=== PATIENT | male | born 1965 | race Hispanic/Latino ===

== ENCOUNTER 2016-11-10 18:35 | Emergency (ER) | payer MEDICAID ==
[2016-11-10 18:38] VITALS: BMI 28.3
[2016-11-10 18:56] VITALS: TEMP 98
--- NOTE | 2016-11-10 19:16 | ED PDOC ---
Arrival/HPI - General Historian: Patient - History of Present Illness Time/Duration: Prior to Arrival Symptom Onset: Sudden Symptom Course: Unchanged <Rafael Gutierrez - Last Filed: 11/10/16 22:46> <Casper Barrientos - Last Filed: 11/11/16 05:59> - General Chief Complaint: Substance Abuse Time Seen by Provider: 11/10/16 18:38 - History of Present Illness Narrative History of Present Illness (Text): 11/10/16 19:18 A 51 year old male, with a history of substance abuse, brought in by EMS for intoxication after police found patient trying to break into a bank. Patient came to emergency department previously for substance abuse. Patient denies any other complaints at this time. Patient came to emergency department previously for substance abuse. (Rafael Gutierrez) Associated Symptoms (Text): none (Rafael Gutierrez) Past Medical History - Provider Review Nursing Documentation Reviewed: Yes - Infectious Disease Hx of Infectious Diseases: None, C.diff - Tetanus Immunization Tetanus Immunization: Unknown - Past Medical History Past Medical History: No Previous - Cardiac Hx Cardiac Disorders: No - Pulmonary Hx Respiratory Disorders: No - Neurological Hx Neurological Disorder: No - HEENT Hx HEENT Disorder: No - Renal Hx Renal Disorder: No - Endocrine/Metabolic Hx Endocrine Disorders: No - Hematological/Oncological Hx Blood Disorders: No - Integumentary Hx Dermatological Disorder: No - Musculoskeletal/Rheumatological Hx Musculoskeletal Disorders: No Hx Falls: No - Gastrointestinal Hx Gastrointestinal Disorders: No - Genitourinary/Gynecological Hx Genitourinary Disorders: No - Psychiatric Hx Anxiety: Yes Hx Substance Use: Yes (Heroin/Cocaine) Other/Comment: Substance Abuse - Past Surgical History Past Surgical History: No Previous - Anesthesia Hx Anesthesia: No Hx Anesthesia Reactions: No Hx Malignant Hyperthermia: No - Suicidal Assessment Feels Threatened In Home Enviroment: No <Rafael Gutierrez - Last Filed: 11/10/16 22:46> Family/Social History - Physician Review Nursing Documentation Reviewed: Yes Family/Social History: No Known Family HX Smoking Status: Unknown If Ever Smoked Hx Alcohol Use: No Hx Substance Use: Yes (Heroin/Cocaine) Hx Substance Use Treatment: No <Rafael Gutierrez - Last Filed: 11/10/16 22:46> Allergies/Home Meds <Rafael Gutierrez - Last Filed: 11/10/16 22:46> <Casper Barrientos P - Last Filed: 11/11/16 05:59> Allergies/Adverse Reactions: Allergies No Known Allergies Allergy (Verified 11/18/15 21:28) Home Medications: Home Meds Medication Instructions Recorded Confirmed Unobtainable 11/11/16 11/11/16 Review of Systems - Physician Review All systems were reviewed & negative as marked: Yes - Review of Systems Constitutional: Other (substance abuse) Respiratory: absent: SOB Cardiovascular: absent: Chest Pain <Rafael Gutierrez - Last Filed: 11/10/16 22:46> Physical Exam Vital Signs Reviewed: Yes Temperature: Afebrile Blood Pressure: Normal Pulse: Regular Respiratory Rate: Normal Appearance: Positive for: Well-Appearing, Non-Toxic, Comfortable, Other ( somnolent) Pain Distress: None Mental Status: Positive for: Alert and Oriented X 3 - Systems Exam Head: Present: Atraumatic, Normocephalic Pupils: Present: PERRL (2 mm bilateral) Extroacular Muscles: Present: EOMI Conjunctiva: Present: Normal Mouth: Present: Moist Mucous Membranes Neck: Present: Normal Range of Motion Respiratory/Chest: Present: Clear to Auscultation, Good Air Exchange. No: Respiratory Distress, Accessory Muscle Use Cardiovascular: Present: Regular Rate and Rhythm, Normal S1, S2. No: Murmurs Abdomen: Present: Normal Bowel Sounds. No: Tenderness, Distention, Peritoneal Signs Back: Present: Normal Inspection Upper Extremity: Present: Normal Inspection. No: Cyanosis, Edema Lower Extremity: Present: Normal Inspection. No: Edema Neurological: Present: GCS=15, CN II-XII Intact, Speech Normal Skin: Present: Warm, Dry, Normal Color. No: Rashes Psychiatric: Present: Alert, Oriented x 3, Normal Insight, Normal Concentration <Rafael Gutierrez - Last Filed: 11/10/16 22:46> Medical Decision Making - Lab Interpretations I have reviewed the lab results: Yes - EKG Interpretation Interpreted by ED Physician: Yes Type: 12 lead EKG <Rafael Gutierrez - Last Filed: 11/10/16 22:46> <Casper Barrientos P - Last Filed: 11/11/16 05:59> ED Course and Treatment: 11/10/16 19:13 Impression: A 51 year old male with substance abuse, intoxicated. Plan: -- EKG -- chest xray -- Urinalysis -- labs -- Reassess and disposition Prior Visits: Notes and results from previous visits were reviewed. Patient last reported to the emergency department on 11/18/15 for evaluation of exertional chest pain and BOYLE. Patient admitted to telemetry observation for chest pain. Progress Notes: EKG: Ordered, reviewed, and independently interpreted the EKG. Rate : 88 BPM Rhythm : NSR Interpretation : No ST/T wave changes 11/10/16 22:47 pt increasingly arousable. . cxr shows ?infiltrate vs atelecatsis. ct chest/ head ct neg. signed out to night team pending reassessment. (Rafael Gutierrez) 11/11/16 06:00 pt now a&ox3 and ambulatory w steady gait. dc home via [employer]. (Casper Barrientos) - Lab Interpretations Lab Results: 11/10/16 19:25 11/10/16 19:25 Lab Results 11/11/16 01:10: Urine Opiates Screen Positive H, Urine Methadone Screen Negative , Ur Barbiturates Screen Negative, Ur Phencyclidine Scrn Positive H, Ur Amphetamines Screen Negative, U Benzodiazepines Scrn Positive H, U Oth Cocaine Metabols Negative, U Cannabinoids Screen Negative 11/11/16 01:10: Urine Color Yellow, Urine Appearance Clear, Urine pH 6.0, Ur Specific [place] >= 1.030, Urine Protein Negative, Urine Glucose (UA) Negative, Urine Ketones Negative, Urine Blood Trace-intact H, Urine Nitrate Negative, Urine Bilirubin Negative, Urine Urobilinogen 0.2, Ur Leukocyte Esterase Negative , Urine RBC 0 - 2, Urine WBC 0 - 2, Ur Epithelial Cells 0 - 2 11/10/16 19:25: Alcohol, Quantitative < 10 11/10/16 19:25: Salicylates < 1 L, Acetaminophen < 10.0 L 11/10/16 19:25: Sodium 138, Potassium 3.8, Chloride 103, Carbon Dioxide 30, Anion Gap 9 L, BUN 13, Creatinine 1.1, Est GFR ( Amer) > 60, Est GFR (Non -Af Amer) > 60, Random Glucose 83, Calcium 9.1, Total Bilirubin 0.7, AST 100 H, ALT 48, Alkaline Phosphatase 89, Total Protein 7.1, Albumin 4.1, Globulin 3.0, Albumin/Globulin Ratio 1.4 11/10/16 19:25: WBC 10.6 D, RBC 4.57, Hgb 14.6, Hct 42.7, MCV 93.4, MCH 31.9, MCHC 34.2, RDW 13.7, Plt Count 279, MPV 9.3, Gran % 68.2 H, Lymph % (Auto) 24.7 , [place] % (Auto) 6.0, Eos % (Auto) 0.8 L, Baso % (Auto) 0.3, Gran # 7.22 H, Lymph # 2.6, [place] # 0.6, Eos # 0.1, Baso # 0.03 - RAD Interpretation Radiology Orders: 11/10/16 18:46 CHEST PORTABLE [RAD] Stat 11/10/16 19:44 CHEST W/O CONTRAST [CT] Stat HEAD W/O CONTRAST [CT] Stat - Scribe Statement The provider has reviewed the documentation as recorded by the Scribe <Rafael Gutierrez - Last Filed: 11/10/16 22:46> <Casper Barrientos - Last Filed: 11/11/16 05:59> - Scribe Statement Avery Horne Provider Scribe Attestation: All medical record entries made by the Scribe were at my direction and personally dictated by me. I have reviewed the chart and agree that the record accurately reflects my personal performance of the history, physical exam, medical decision making, and the department course for this patient. I have also personally directed, reviewed, and agree with the discharge instructions and disposition. (Rafael Gutierrez) Disposition/Present on Arrival - Present on Arrival History of DVT/PE: No History of Uncontrolled Diabetes: No Urinary Catheter: No History of Decub. Ulcer: No History Surgical Site Infection Following: None <Rafael Gutierrez - Last Filed: 11/10/16 22:46> - Present on Arrival Any Indicators Present on Arrival: No - Disposition Have Diagnosis and Disposition been Completed?: Yes Disposition Time: 05:36 <Casper Barrientos - Last Filed: 11/11/16 05:59> - Disposition Diagnosis: Benzodiazepine abuse, Opioid abuse, PCP abuse Disposition: HOME/ ROUTINE Condition: IMPROVED Referrals: Álvaro Mon MD [Primary Care Provider] - Follow up with primary
[2016-11-10 19:42] LABS: ADD MANUAL DIFF? NO
[2016-11-10 19:49] LABS: BASO # 0.03 K/mm3 (0.0-2.0); BASO % 0.3 % (0.0-3.0); EOS # 0.1 (0.0-0.7); EOS % 0.8 % (1.5-5.0); GRAN # 7.22 (1.4-6.5); GRAN % 68.2 % (50.0-68.0); HEMATOCRIT 42.7 % (42.0-52.0); LYMPH # 2.6 (1.2-3.4); LYMPH % 24.7 % (22.0-35.0); MEAN CELL VOLUME 93.4 fL (80.0-105.0); MEAN CORPUSCULAR HEMOGLOBIN 31.9 pg (25.0-35.0); MEAN CORPUSCULAR HGB CONC 34.2 g/dl (31.0-37.0); MEAN PLATELET VOLUME 9.3 fl (7.0-11.0); MONO # 0.6 (0.1-0.6); PLATELET COUNT 279 10^3/uL (120.0-450.0); RED CELL DISTRIBUTION WIDTH 13.7 % (11.5-14.5); WHITE BLOOD COUNT 10.6 10^3/ul (4.5-11.0)
[2016-11-10 20:00] LABS: ALB/GLOB RATIO 1.4 (1.1-1.8); ALKALINE PHOSPHATASE 89 U/L (38-133); ALT/SGPT 48 U/L (7-56); AST/SGOT 100 U/L (15-59); BILIRUBIN,TOTAL 0.7 mg/dL (0.2-1.3); BLOOD UREA NITROGEN 13 mg/dL (7-21); CALCIUM 9.1 mg/dL (8.4-10.5); CARBON DIOXIDE 30 mmol/L (21-33); CHLORIDE 103 mmol/L (98-107); GFR AFRICAN-AMERICAN > 60; GLUCOSE,RANDOM 83 mg/dL (70-110); POTASSIUM 3.8 mmol/L (3.6-5.0); SODIUM 138 mmol/L (132-148); TOTAL PROTEIN 7.1 g/dL (5.8-8.3)
--- NOTE | 2016-11-10 22:11 | CT ---
EXAM: CT Head Without Intravenous Contrast CLINICAL HISTORY: 51 years old, male; Signs and symptoms; Altered mental status/memory loss; Additional info: AMS TECHNIQUE: Axial computed tomography images of the head/brain without intravenous contrast. This CT exam was performed using one or more of the following dose reduction techniques: automated exposure control, adjustment of the mA and/or kV according to patient size, and/or use of iterative reconstruction technique. COMPARISON: No relevant prior studies available. FINDINGS: Brain: No hemorrhage. No edema. Mild periventricular white matter hypoattenuation, most likely representing mild chronic ischemic small vessel changes. Ventricles: No hydrocephalus. Bones: Skull is intact. Sinuses: No acute sinusitis. Mastoid air cells: No mastoid effusion. IMPRESSION: No CT evidence of acute intracranial abnormality. Mild periventricular white matter hypoattenuation, most likely representing mild chronic ischemic small vessel changes. Correlate clinically. Followup as warranted.
--- NOTE | 2016-11-10 22:18 | CT ---
EXAM: CT Chest Without Intravenous Contrast CLINICAL HISTORY: 51 years old, male; Signs and symptoms; Other: AMS; Additional info: AMS R/O pna TECHNIQUE: Axial computed tomography images of the chest without intravenous contrast. This CT exam was performed using one or more of the following dose reduction techniques: automated exposure control, adjustment of the mA and/or kV according to patient size, and/or use of iterative reconstruction technique. MIP reconstructed images were created and reviewed. Coronal and sagittal reformatted images were created and reviewed. COMPARISON: DX - CHEST PORTABLE 11/10/2016 7:01:34 PM FINDINGS: Lungs: Moderately severe centrilobular emphysematous changes. [place] in right lung apex and adjacent mediastinum. Coarsened interstitial markings. Granuloma at right lung base. Notable crowding/atelectasis at the lung bases. No definite infectious infiltrate, however, cannot exclude minimal or developing infiltrate at the lung bases due to likely atelectasis. Pleural space: No pneumothorax. No significant effusion. Heart: No cardiomegaly. No significant pericardial effusion. Bones: No acute fracture. Vasculature: Mild atherosclerosis. No thoracic aortic aneurysm. Lymph nodes: Shotty nodes. Small hiatal hernia. IMPRESSION: Moderately severe centrilobular emphysematous changes. Notable crowding/atelectasis at the lung bases. No definite infectious infiltrate, however, cannot exclude minimal or developing infiltrate at the lung bases due to likely atelectasis. Please see additional details/findings as above. Correlate clinically. Followup as warranted.
[2016-11-11 01:36] LABS: URINE APPEARANCE CLEAR (CLEAR); URINE BILIRUBIN NEGATIVE (NEGATIVE); URINE BLOOD TRACE-INTACT (NEGATIVE); URINE COLOR YELLOW (YELLOW); URINE GLUCOSE (UA) NEGATIVE (NEGATIVE); URINE KETONE NEGATIVE (NEGATIVE); URINE LEUKOCYTE ESTERASE NEGATIVE Leu/uL (NEGATIVE); URINE PROTEIN NEGATIVE mg/dL (<30 mg/dL); URINE UROBILINOGEN 0.2 E.U./dL (<1 E.U./dL)
[2016-11-11 01:44] LABS: URINE EPITHELIAL CELLS 0 - 2 /hpf (0-5); URINE RBC 0 - 2 /hpf (0-2); URINE WBC 0 - 2 /hpf (0-6)
[2016-11-11 05:16] VITALS: O2SAT 97
[2016-11-11 05:57] VITALS: BP 108/54; PULSE 79; RESP 18
--- NOTE | 2016-11-11 09:38 | RAD ---
HISTORY: overdose COMPARISON: 11/18/2015 FINDINGS: LUNGS: Minimal patchy infiltrate at the right lung base. PLEURA: No significant pleural effusion identified, no pneumothorax apparent. CARDIOVASCULAR: The heart is normal in size. There is minimal vascular congestion OSSEOUS STRUCTURES: No significant abnormalities. VISUALIZED UPPER ABDOMEN: Normal. OTHER FINDINGS: None. IMPRESSION: Minimal patchy infiltrate at the right lung base
--- NOTE | 2016-11-11 10:36 | CARD ---
APPROVED REPORT EKG Measurement Heart [id number] <Conclusion> Normal sinus rhythm Possible Left atrial enlargement RVCD No change
== END 2016-11-11 05:57 | disposition home or self-care (01) ==
LOC: ED 18:35
DX: F11.10 Opioid abuse, uncomplicated (principal); F16.10 Hallucinogen abuse, uncomplicated; F13.10 Sedative, hypnotic or anxiolytic abuse, uncomplicated

== ENCOUNTER 2017-03-04 18:51 | Inpatient (IN) | payer MEDICAID ==
[2017-03-04] MEDS ORDERED: Naloxone 0.4 mg/ml Inj (Adult) IVP STA (19:16)
[2017-03-04] MEDS ORDERED: Sodium Chloride 0.9% 1,000 ML IV SCH ×2 (19:30→20:41)
[2017-03-04 19:38] LABS: BASO # 0.03 K/mm3 (0.0-2.0); BASO % 0.4 % (0.0-3.0); EOS # 0.1 (0.0-0.7); EOS % 1.7 % (1.5-5.0); GRAN # 5.47 (1.4-6.5); GRAN % 65.2 % (50.0-68.0); HEMATOCRIT 43.1 % (42.0-52.0); LYMPH # 2.2 (1.2-3.4); LYMPH % 25.7 % (22.0-35.0); MEAN CELL VOLUME 92.9 fl (80.0-105.0); MEAN CORPUSCULAR HGB CONC 33.4 g/dl (31.0-37.0); MEAN PLATELET VOLUME 9.2 fl (7.0-11.0); MONO # 0.6 (0.1-0.6); PH,URINE 6.5 (4.7-8.0); RED CELL DISTRIBUTION WIDTH 13.8 % (11.5-14.5); URINE APPEARANCE CLEAR (CLEAR); URINE BILIRUBIN NEGATIVE (NEGATIVE); URINE BLOOD NEGATIVE (NEGATIVE); URINE COLOR YELLOW (YELLOW); URINE GLUCOSE (UA) NEGATIVE (NEGATIVE); URINE KETONE TRACE mg/dL (NEGATIVE); URINE LEUKOCYTE ESTERASE NEGATIVE Leu/uL (NEGATIVE); URINE PROTEIN NEGATIVE mg/dL (<30 mg/dL); URINE UROBILINOGEN 0.2 E.U./dL (<1 E.U./dL); WHITE BLOOD COUNT 8.4 10^3/ul (4.5-11.0)
[2017-03-04 19:49] LABS: INR 0.93 (0.93-1.08); PARTIAL THROMBOPLASTIN TIME 28.4 Seconds (23.7-30.8)
[2017-03-04 19:56] LABS: ALB/GLOB RATIO 1.5 (1.1-1.8); ALKALINE PHOSPHATASE 99 U/L (38-126); ALT/SGPT 35 U/L (7-56); AST/SGOT 41 U/L (17-59); BILIRUBIN,TOTAL 0.4 mg/dL (0.2-1.3); BLOOD UREA NITROGEN 26 mg/dL (7-21); CALCIUM 8.4 mg/dL (8.4-10.5); CARBON DIOXIDE 28 mmol/L (21-33); CHLORIDE 107 mmol/L (98-107); GFR AFRICAN-AMERICAN > 60; GLUCOSE,RANDOM 61 mg/dL (70-110); MAGNESIUM 2.4 mg/dL (1.7-2.2); PHOSPHOROUS 3.5 mg/dL (2.5-4.5); POTASSIUM 3.8 mmol/L (3.6-5.0); SODIUM 144 mmol/L (132-148); TOTAL PROTEIN 7.2 g/dL (5.8-8.3)
[2017-03-04] MEDS ORDERED: Naloxone 2.4 MG in Sodium Chloride 0.9% 240 ML IV ONE (20:13)
[2017-03-04] MEDS ORDERED: Dextrose 50% SYRINGE Inj (50 ml) IVP STA (20:14)
[2017-03-04 20:15] LABS: TROPONIN I < 0.01 ng/mL
[2017-03-04] MEDS ORDERED: Dextrose 50% SYRINGE Inj (50 ml) ONE (20:17)
[2017-03-04 20:45] LABS: ARTERIAL BLOOD GAS HCO3 24.8 mmol/L (21-28); ARTERIAL BLOOD GAS O2 CAPACITY 16.2 mL/dl (16-24); ARTERIAL BLOOD GAS O2 CONTENT 14.3 ML/dl (15-23); ARTERIAL BLOOD GAS PH 7.33 (7.35-7.45); ARTERIAL BLOOD HGB O2 SAT 85.4 % (95.0-98.0); CARBOXYHEMOGLOBIN 2.4 % (0.5-1.5); HHB 11.3 % (0-5); METHEMOGLOBIN 0.8 % (0.0-3.0)
--- NOTE | 2017-03-04 21:42 | ED PDOC ---
Arrival/HPI - General Chief Complaint: Substance Abuse Time Seen by Provider: 03/04/17 19:07 Historian: Patient - History of Present Illness Narrative History of Present Illness (Text): 03/04/17 21:43 A 51 year old male, whose past medical history includes substance abuse, was brought in by EMS for ativan and heroine overdose. Patient is lethargic. PMD: Dr. Mon Time/Duration: Prior to Arrival Symptom Onset: Sudden Symptom Course: Unchanged Activities at Onset: Rest Past Medical History - Provider Review Nursing Documentation Reviewed: Yes - Infectious Disease Hx of Infectious Diseases: None, C.diff - Tetanus Immunization Tetanus Immunization: Unknown - Past Medical History Past Medical History: No Previous - Cardiac Hx Cardiac Disorders: No - Pulmonary Hx Respiratory Disorders: No - Neurological Hx Neurological Disorder: No - HEENT Hx HEENT Disorder: No - Renal Hx Renal Disorder: No - Endocrine/Metabolic Hx Endocrine Disorders: No - Hematological/Oncological Hx Blood Disorders: No - Integumentary Hx Dermatological Disorder: No - Musculoskeletal/Rheumatological Hx Musculoskeletal Disorders: No Hx Falls: No - Gastrointestinal Hx Gastrointestinal Disorders: No - Genitourinary/Gynecological Hx Genitourinary Disorders: No - Psychiatric Hx Anxiety: Yes Hx Substance Use: Yes (Heroin/Cocaine) Other/Comment: Substance Abuse - Past Surgical History Past Surgical History: No Previous - Anesthesia Hx Anesthesia: No Hx Anesthesia Reactions: No Hx Malignant Hyperthermia: No - Suicidal Assessment Feels Threatened In Home Enviroment: No Family/Social History - Physician Review Nursing Documentation Reviewed: Yes Family/Social History: No Known Family HX Smoking Status: Unknown If Ever Smoked Hx Alcohol Use: No Hx Substance Use: Yes (Heroin/Cocaine) Hx Substance Use Treatment: No Allergies/Home Meds Allergies/Adverse Reactions: Allergies No Known Allergies Allergy (Verified 11/18/15 21:28) Home Medications: Home Meds Medication Instructions Recorded Confirmed Unobtainable 11/11/16 03/04/17 Review of Systems - Physician Review All systems were reviewed & negative as marked: Yes - Review of Systems Systems not reviewed;Unavailable: Acuity of Condition Physical Exam Vital Signs Reviewed: Yes Vital Signs Temp Pulse Resp BP Pulse Ox 03/04/17 21:45 83 22 104/56 L 94 L 03/04/17 19:40 88 18 94/59 L 95 03/04/17 19:35 97.9 F 88 26 H 101/60 94 L 03/04/17 19:15 97.9 F 94 H 22 114/64 91 L Temperature: Afebrile Blood Pressure: Normal Pulse: Regular Respiratory Rate: Normal Appearance: Positive for: Well-Appearing, Comfortable Pain Distress: None Mental Status: Positive for: Lethargic - Systems Exam Head: Present: Atraumatic, Normocephalic Pupils: Present: PERRL Extroacular Muscles: Present: EOMI Conjunctiva: Present: Normal Mouth: Present: Moist Mucous Membranes Neck: Present: Normal Range of Motion Respiratory/Chest: Present: Clear to Auscultation, Good Air Exchange. No: Respiratory Distress, Accessory Muscle Use Cardiovascular: Present: Regular Rate and Rhythm, Normal S1, S2. No: Murmurs Abdomen: Present: Normal Bowel Sounds. No: Tenderness, Distention, Peritoneal Signs Back: Present: Normal Inspection Upper Extremity: Present: Normal Inspection. No: Cyanosis, Edema Lower Extremity: Present: Normal Inspection. No: Edema Neurological: Present: GCS=15, CN II-XII Intact. No: Speech Normal Skin: Present: Warm, Dry, Normal Color. No: Rashes Psychiatric: Present: Lethargic Medical Decision Making ED Course and Treatment: 03/04/17 21:39 Impression: A 51 year old male with ativan and heroine overdose. Plan: -- EKG -- chest xray -- labs -- CT head -- Urinalysis -- Dextrose, Narcan, IV fluids -- Reassess and disposition Prior Visits: Notes and results from previous visits were reviewed. Patient last reported to the emergency department on 11/10/16 for evaluation of alcohol intoxication. Progress Notes: 03/04/17 21:44 EKG: Ordered, reviewed, and independently interpreted the EKG. Rate : 89 BPM Rhythm : NSR Interpretation : No ST-segment changes, normal intervals. chest xray: No active disease, interpreted by me. CT Head Without Intravenous Contrast FINDINGS: Brain: Minimal atrophy. No intracranial hemorrhage. No mass. Few scattered subtle foci of decreased attenuation within periventricular/subcortical white matter. No definite edema. Ventricles: No hydrocephalus. Bones/joints: No acute fracture. Soft tissues: Unremarkable. Sinuses: Scattered minimal mucosal thickening. Mastoid air cells: No mastoid effusion. Orbits: Unremarkable as visualized. IMPRESSION: 1. Nonspecific white matter changes. Acute infarction may be CT occult within first 24 hours. If a focal deficit persists, consider followup CT or MRI for further evaluation. 2. Incidental/non-acute findings are described above. Dictated and Authenticated by: Abram Andersen MD 03/04/2017 9:55 PM Eastern Time ([place] & [place]) 03/04/17 22:28 PROCEDURE: INTUBATION Performed by the emergency provider Indication: protect airway Pre-oxygenation: [id number] Medications: See MAR for details. ETT Size: 8 Confirmation: Cords directly visualized as tube passed, good bilateral breath sounds, positive CO2 detector color change, tube fogging, adequate chest rise, improving pulse oximetry reading, improved skin color, and absence of gastric sounds. ETT Secured: The cuff was inflated and the tube was secured appropriately at a distance of 24 cm at the lip. Post-Procedure: There were no immediate complications. CXR Confirmation: yes 03/04/17 23:08 chest xray: ET tube above the cristina. 03/05/17 06:54 case d/w dr mosqueda for icu admit wanted pt intubated prior to icu transfer poison control notified - Critical Care Critical Care Minutes: 45 minutes (management of od ) - Lab Interpretations Lab Results: 03/04/17 19:00 03/04/17 19:00 Lab Results 03/04/17 20:41: pCO2 47 H, pO2 51.0 L, HCO3 24.8, ABG pH 7.33 L, ABG Total CO2 26.2, ABG O2 Saturation 88.3 L, ABG O2 Content 14.3 L, ABG Base Excess -1.4, ABG Hemoglobin 11.9, ABG Carboxyhemoglobin 2.4 H, POC ABG HHb (Measured) 11.3 H , ABG Methemoglobin 0.8, ABG O2 Capacity 16.2, Hgb O2 Saturation 85.4 L, FiO2 36.0 03/04/17 20:14: Ammonia 15 03/04/17 19:00: Alcohol, Quantitative < 10 03/04/17 19:00: Salicylates < 1 L, Acetaminophen < 10.0 L 03/04/17 19:00: Urine Opiates Screen Positive H, Urine Methadone Screen Negative , Ur Barbiturates Screen Negative, Ur Phencyclidine Scrn Negative, Ur Amphetamines Screen Negative, U Benzodiazepines Scrn Positive, U Oth Cocaine Metabols Negative, U Cannabinoids Screen Negative 03/04/17 19:00: Sodium 144, Potassium 3.8, Chloride 107, Carbon Dioxide 28, Anion Gap 13, BUN 26 H, Creatinine 1.0, Est GFR ( Amer) > 60, Est GFR ( Non-Af Amer) > 60, Random Glucose 61 L, Calcium 8.4, Phosphorus 3.5, Magnesium 2.4 H, Total Bilirubin 0.4, AST 41, ALT 35, Alkaline Phosphatase 99, Lactate Dehydrogenase 886 H, Total Creatine Kinase 656 H, CK-MB (CK-2) 5.6 H, CK-MB (CK- 2) % 0.9 L, Troponin I < 0.01, Total Protein 7.2, Albumin 4.3, Globulin 2.9, Albumin/Globulin Ratio 1.5 03/04/17 19:00: Urine Color Yellow, Urine Appearance Clear, Urine pH 6.5, Ur Specific [place] 1.020, Urine Protein Negative, Urine Glucose (UA) Negative, Urine Ketones Trace H, Urine Blood Negative, Urine Nitrate Negative, Urine Bilirubin Negative, Urine Urobilinogen 0.2, Ur Leukocyte Esterase Negative 03/04/17 19:00: PT 10.0, INR 0.93, APTT 28.4 03/04/17 19:00: WBC 8.4 D, RBC 4.64, Hgb 14.4, Hct 43.1, MCV 92.9, MCH 31.0, MCHC 33.4, RDW 13.8, Plt Count 282, MPV 9.2, Gran % 65.2, Lymph % (Auto) 25.7, [place] % (Auto) 7.0 H, Eos % (Auto) 1.7, Baso % (Auto) 0.4, Gran # 5.47, Lymph # 2.2, [place] # 0.6, Eos # 0.1, Baso # 0.03 I have reviewed the lab results: Yes - RAD Interpretation Radiology Orders: 03/04/17 19:15 HEAD W/O CONTRAST [CT] Stat CHEST ONE VIEW [RAD] Stat - EKG Interpretation Interpreted by ED Physician: Yes Type: 12 lead EKG - Medication Orders Current Medication Orders: Heparin Sodium (Porcine) (Heparin) 5,000 units SC Q12 EDVIN PRN Reason: Protocol Propofol (Diprivan) 1,000 mg in 100 mls @ 2.313 mls/hr IV .Q24H PRN; Protocol; 5 MCG/KG/MIN PRN Reason: TITRATE PER MD ORDER Last Admin: 03/05/17 05:25 Dose: 30 mcg/kg/min, 13.878 mls/hr eMAR Start Stop Document 03/05/17 05:25 MPD (Rec: 03/05/17 05:26 [id number]) Intravenous Solution Start Date 03/05/17 Start Time 02:45 Titration Intervention Document 03/05/17 05:25 MPD (Rec: 03/05/17 05:26 [id number]) Titration Intake Cumulative Intake (Rx) 100 Waste Amount 0 Container Volume 100 Titration Dosing Titration Dose 30 IV Rate 13.878 Intake/Decrease Started/Increased Cumulative Dose 1000 Sodium Chloride (Sodium Chloride 0.9%) 1,000 mls @ 150 mls/hr IV .Q6H40M EDVIN Pantoprazole Sodium (Protonix Inj) 40 mg IVP DAILY EDVIN Discontinued Medications Dextrose (Dextrose 50% Inj) 50 ml IVP STAT STA Stop: 03/04/17 20:15 Last Admin: 03/04/17 20:19 Dose: 50 ml IVP Administration Document 03/04/17 20:19 AD (Rec: 03/04/17 20:19 AD [id number]) Charges for Administration # of IVP Administrations 1 Sodium Chloride (Sodium Chloride 0.9%) 1,000 mls @ 80 mls/hr IV .[id number] EDVIN Last Admin: 03/04/17 19:50 Dose: 80 mls/hr eMAR Start Stop Document 03/04/17 19:50 AD (Rec: 03/04/17 19:51 AD [id number]) Intravenous Solution Start Date 03/04/17 Start Time 19:30 Naloxone HCl 2.4 mg/ Sodium (Chloride) 246 mls @ 61.5 mls/hr IV .Q4H ONE PRN Reason: 0.6 MG/HR Stop: 03/05/17 00:12 Last Admin: 03/04/17 21:30 Dose: 61.5 mls/hr eMAR Start Stop Document 03/04/17 21:30 RD (Rec: 03/04/17 21:30 RD [id number]) Intravenous Solution Start Date 03/04/17 Start Time 21:30 Sodium Chloride (Sodium Chloride 0.9%) 1,000 mls @ 1,000 mls/hr IV .Q1H EDVIN Last Admin: 03/04/17 21:33 Dose: 1,000 mls/hr eMAR Start Stop Document 03/04/17 21:33 RD (Rec: 03/04/17 21:33 RD [id number]) Intravenous Solution Start Date 03/04/17 Start Time 21:33 End Date 03/04/17 End time 22:33 Total Infusion Time 60 Sodium Chloride (Sodium Chloride 0.9%) 100 mls @ 150 mls/hr IV .Q40M EDVIN Last Admin: 03/04/17 22:30 Dose: 150 mls/hr eMAR Start Stop Document 03/04/17 22:30 RD (Rec: 03/04/17 23:00 RD [id number]) Intravenous Solution Start Date 03/04/17 Start Time 22:30 Naloxone HCl (Narcan) 0.4 mg IVP STAT STA Stop: 03/04/17 19:17 Last Admin: 03/04/17 19:50 Dose: 0.4 mg IVP Administration Document 03/04/17 19:50 AD (Rec: 03/04/17 19:50 AD [id number]) Charges for Administration # of IVP Administrations 1 - Scribe Statement The provider has reviewed the documentation as recorded by the Yobaniibmaria elena Horne Provider Scribe Attestation: All medical record entries made by the Scribe were at my direction and personally dictated by me. I have reviewed the chart and agree that the record accurately reflects my personal performance of the history, physical exam, medical decision making, and the department course for this patient. I have also personally directed, reviewed, and agree with the discharge instructions and disposition. Disposition/Present on Arrival - Present on Arrival Any Indicators Present on Arrival: No History of DVT/PE: No History of Uncontrolled Diabetes: No Urinary Catheter: No History of Decub. Ulcer: No History Surgical Site Infection Following: None - Disposition Have Diagnosis and Disposition been Completed?: Yes Diagnosis: Benzodiazepine overdose Disposition: HOSPITALIZED Disposition Time: 22:00 Condition: CRITICAL
--- NOTE | 2017-03-04 21:56 | CT ---
EXAM: CT Head Without Intravenous Contrast CLINICAL HISTORY: 51 years old, male; Signs and symptoms; Altered mental status/memory loss; Additional info: AMS TECHNIQUE: Axial computed tomography images of the head/brain without intravenous contrast. All CT scans at this facility use one or more dose reduction techniques, viz.: automated exposure control; ma/kV adjustment per patient size (including targeted exams where dose is matched to indication; i.e. head); or iterative reconstruction technique. COMPARISON: CT - HEAD W/O CONTRAST 11/10/2016 9:16:43 PM FINDINGS: Brain: Minimal atrophy. No intracranial hemorrhage. No mass. Few scattered subtle foci of decreased attenuation within periventricular/subcortical white matter. No definite edema. Ventricles: No hydrocephalus. Bones/joints: No acute fracture. Soft tissues: Unremarkable. Sinuses: Scattered minimal mucosal thickening. Mastoid air cells: No mastoid effusion. Orbits: Unremarkable as visualized. IMPRESSION: 1. Nonspecific white matter changes. Acute infarction may be CT occult within first 24 hours. If a focal deficit persists, consider followup CT or MRI for further evaluation. 2. Incidental/non-acute findings are described above.
[2017-03-04] MEDS ORDERED: Succinylcholine 200 mg/10 ml Inj IV ONE ×2 (22:02→22:14)
[2017-03-04] MEDS ORDERED: Etomidate 20 mg/10ml Inj IV ONE (22:02)
[2017-03-04] MEDS ORDERED: Propofol 10 mg/ml 1,000 MG/100 ML VIAL ONE (22:32)
[2017-03-04] MEDS: Propofol 10 mg/ml 1,000 MG/100 ML VIAL IV PRN (22:35)
[2017-03-04] MEDS ORDERED: Sodium Chloride 0.9% 100 ML IV SCH (22:45)
--- NOTE | 2017-03-04 22:58 | CP.PCM.HP ---
Addendum entered and electronically signed by Carmen Medina DO 03/05/17 00: 05: Poison control was notified and recommended supportive care. Original Note: <Carmen Medina - Last Filed: 03/04/17 23:20> History of Present Illness - History of Present Illness History of Present Illness: This is a 51Y M with PMH of polysubstance abuse came to ED for AMS. Patient was found unconscious at a friends house where they were doing heroin. He was brought in by ambulance and was found to have a prescription of Xanax 2mg for 90 pills filled on 03/03/[address] Garzon. Only 10 pills were found in the bottle. It is unclear whether he took those pills or were selling him. In the ED , patient was found to be positive for opiates and benzos only. He was placed on Narcan drip with minimal response. Patient was very lethargic upon interview and with minimal response to sternal rub. Patient was intubated for airway protection. Mother was called, but there was no answer. Message was left. History was obtained from previous records. Patient has been seen for heroin overdose in the past. PMH: Polysubstance abuse PSH: None Meds: Xanax ALL: NKDA SH: + heroin and benzo, heavy smoker Present on Admission - Present on Admission Any Indicators Present on Admission: No Review of Systems - Review of Systems Systems not reviewed;Unavailable: Altered Mental Status Past Patient History - Infectious Disease Hx of Infectious Diseases: None, C.diff - Tetanus Immunizations Tetanus Immunization: Unknown - Past Social History Smoking Status: Heavy Smoker > 10 Cigarettes Daily Alcohol: None Drugs: Opiates, Prescription medications - CARDIAC Hx Cardiac Disorders: No - PULMONARY Hx Respiratory Disorders: No - NEUROLOGICAL Hx Neurological Disorder: No - HEENT Hx HEENT Problems: No - RENAL Hx Chronic Kidney Disease: No - ENDOCRINE/METABOLIC Hx Endocrine Disorders: No - HEMATOLOGICAL/ONCOLOGICAL Hx Blood Disorders: No - INTEGUMENTARY Hx Dermatological Problems: No - MUSCULOSKELETAL/RHEUMATOLOGICAL Hx Musculoskeletal Disorders: No Hx Falls: No - GASTROINTESTINAL Hx Gastrointestinal Disorders: No - GENITOURINARY/GYNECOLOGICAL Hx Genitourinary Disorders: No - PSYCHIATRIC Hx Anxiety: Yes Hx Substance Use: Yes (Heroin/Cocaine) Other/Comment: Substance Abuse - SURGICAL HISTORY Hx Surgeries: No - ANESTHESIA Hx Anesthesia: No Hx Anesthesia Reactions: No Hx Malignant Hyperthermia: No Meds Allergies/Adverse Reactions: Allergies Allergy/AdvReac Type Severity Reaction Status Date / Time No Known Allergies Allergy Verified 11/18/15 21:28 Physical Exam - Constitutional Appears: No Acute Distress - Head Exam Head Exam: ATRAUMATIC, NORMAL INSPECTION, NORMOCEPHALIC - Eye Exam Eye Exam: Normal appearance, PERRL Pupil Exam: Miosis, PERRL - ENT Exam ENT Exam: Mucous Membranes Moist - Respiratory Exam Respiratory Exam: Clear to Auscultation Bilateral, NORMAL BREATHING PATTERN. absent: Rales, Rhonchi, Wheezes - Cardiovascular Exam Cardiovascular Exam: REGULAR RHYTHM, +S1, +S2. absent: Gallop, Rubs, Systolic Murmur - GI/Abdominal Exam GI & Abdominal Exam: Normal Bowel Sounds, Soft. absent: Hernia, Mass, Rebound, Rigid, Tenderness - Extremities Exam Extremities exam: Positive for: normal inspection. Negative for: calf tenderness, pedal edema - Neurological Exam Neurological exam: CN II-XII Intact - Skin Skin Exam: Dry, Intact, Normal Color, Warm Results - Vital Signs Recent Vital Signs: Last Vital Signs Temp 97.9 F 03/04/17 19:35 Pulse 83 03/04/17 21:45 Resp 22 03/04/17 21:45 BP 104/56 L 03/04/17 21:45 Pulse Ox 94 L 03/04/17 21:45 - Labs Result Diagrams: 03/04/17 19:00 03/04/17 19:00 Labs: Laboratory Results - last 24 hr 03/04/17 03/04/17 03/04/17 19:00 19:00 19:00 WBC 8.4 D RBC 4.64 Hgb 14.4 Hct 43.1 MCV 92.9 MCH 31.0 MCHC 33.4 RDW 13.8 Plt Count 282 MPV 9.2 Gran % 65.2 Lymph % (Auto) 25.7 [place] % (Auto) 7.0 H Eos % (Auto) 1.7 Baso % (Auto) 0.4 Gran # 5.47 Lymph # 2.2 [place] # 0.6 Eos # 0.1 Baso # 0.03 PT 10.0 INR 0.93 APTT 28.4 pCO2 pO2 HCO3 ABG pH ABG Total CO2 ABG O2 Saturation ABG O2 Content ABG Base Excess ABG Hemoglobin ABG Carboxyhemoglobin POC ABG HHb (Measured) ABG Methemoglobin ABG O2 Capacity Hgb O2 Saturation FiO2 Sodium Potassium Chloride Carbon Dioxide Anion Gap BUN Creatinine Est GFR ( Amer) Est GFR (Non-Af Amer) Random Glucose Calcium Phosphorus Magnesium Total Bilirubin AST ALT Alkaline Phosphatase Ammonia Lactate Dehydrogenase Total Creatine Kinase CK-MB (CK-2) CK-MB (CK-2) % Troponin I Total Protein Albumin Globulin Albumin/Globulin Ratio Urine Color Yellow Urine Appearance Clear Urine pH 6.5 Ur Specific [place] 1.020 Urine Protein Negative Urine Glucose (UA) Negative Urine Ketones Trace H Urine Blood Negative Urine Nitrate Negative Urine Bilirubin Negative Urine Urobilinogen 0.2 Ur Leukocyte Esterase Negative Salicylates Urine Opiates Screen Urine Methadone Screen Acetaminophen Ur Barbiturates Screen Ur Phencyclidine Scrn Ur Amphetamines Screen U Benzodiazepines Scrn U Oth Cocaine Metabols U Cannabinoids Screen Alcohol, Quantitative 03/04/17 03/04/17 03/04/17 19:00 19:00 19:00 WBC RBC Hgb Hct MCV MCH MCHC RDW Plt Count MPV Gran % Lymph % (Auto) [place] % (Auto) Eos % (Auto) Baso % (Auto) Gran # Lymph # [place] # Eos # Baso # PT INR APTT pCO2 pO2 HCO3 ABG pH ABG Total CO2 ABG O2 Saturation ABG O2 Content ABG Base Excess ABG Hemoglobin ABG Carboxyhemoglobin POC ABG HHb (Measured) ABG Methemoglobin ABG O2 Capacity Hgb O2 Saturation FiO2 Sodium 144 Potassium 3.8 Chloride 107 Carbon Dioxide 28 Anion Gap 13 BUN 26 H Creatinine 1.0 Est GFR ( Amer) > 60 Est GFR (Non-Af Amer) > 60 Random Glucose 61 L Calcium 8.4 Phosphorus 3.5 Magnesium 2.4 H Total Bilirubin 0.4 AST 41 ALT 35 Alkaline Phosphatase 99 Ammonia Lactate Dehydrogenase 886 H Total Creatine Kinase 656 H CK-MB (CK-2) 5.6 H CK-MB (CK-2) % 0.9 L Troponin I < 0.01 Total Protein 7.2 Albumin 4.3 Globulin 2.9 Albumin/Globulin Ratio 1.5 Urine Color Urine Appearance Urine pH Ur Specific [place] Urine Protein Urine Glucose (UA) Urine Ketones Urine Blood Urine Nitrate Urine Bilirubin Urine Urobilinogen Ur Leukocyte Esterase Salicylates < 1 L Urine Opiates Screen Positive H Urine Methadone Screen Negative Acetaminophen < 10.0 L Ur Barbiturates Screen Negative Ur Phencyclidine Scrn Negative Ur Amphetamines Screen Negative U Benzodiazepines Scrn Positive U Oth Cocaine Metabols Negative U Cannabinoids Screen Negative Alcohol, Quantitative 03/04/17 03/04/17 03/04/17 19:00 20:14 20:41 WBC RBC Hgb Hct MCV MCH MCHC RDW Plt Count MPV Gran % Lymph % (Auto) [place] % (Auto) Eos % (Auto) Baso % (Auto) Gran # Lymph # [place] # Eos # Baso # PT INR APTT pCO2 47 H pO2 51.0 L HCO3 24.8 ABG pH 7.33 L ABG Total CO2 26.2 ABG O2 Saturation 88.3 L ABG O2 Content 14.3 L ABG Base Excess -1.4 ABG Hemoglobin 11.9 ABG Carboxyhemoglobin 2.4 H POC ABG HHb (Measured) 11.3 H ABG Methemoglobin 0.8 ABG O2 Capacity 16.2 Hgb O2 Saturation 85.4 L FiO2 36.0 Sodium Potassium Chloride Carbon Dioxide Anion Gap BUN Creatinine Est GFR ( Amer) Est GFR (Non-Af Amer) Random Glucose Calcium Phosphorus Magnesium Total Bilirubin AST ALT Alkaline Phosphatase Ammonia 15 Lactate Dehydrogenase Total Creatine Kinase CK-MB (CK-2) CK-MB (CK-2) % Troponin I Total Protein Albumin Globulin Albumin/Globulin Ratio Urine Color Urine Appearance Urine pH Ur Specific [place] Urine Protein Urine Glucose (UA) Urine Ketones Urine Blood Urine Nitrate Urine Bilirubin Urine Urobilinogen Ur Leukocyte Esterase Salicylates Urine Opiates Screen Urine Methadone Screen Acetaminophen Ur Barbiturates Screen Ur Phencyclidine Scrn Ur Amphetamines Screen U Benzodiazepines Scrn U Oth Cocaine Metabols U Cannabinoids Screen Alcohol, Quantitative < 10 Assessment & Plan - Assessment and Plan (Free Text) Assessment: This is a 51Y M with PMH of polysubstance abuse came to ED for AMS secondary to heroin and benzo overdose. Patient was intubated for airway protection. Poison control was notified. Plan: Neuro: Sedated on Propofol Head CT negative for acute pathology Monitor for withdrawal Tox screen positive for only benzo and opiate CV: Patient hemodynamically stable Maintain MAP>65 EKG showed NSR Resp: Intubated on PRVC ABG showed respiratory acidosis Protective lung ventilation strategy (HOB elevated, aspiration precautions) Repeat ABG in AM CXR showed no active disease GI: NG tube in place- Monitor output NPO Nephro/: Zhang in place Monitor urine output Continue to monitor electrolytes and will replace as needed CK mildly elevated- continue NS@150 Heme: Hgb stable- no overt signs of bleeding Continue to monitor ID: afebrile, no leukocytosis Blood culture/Urine culture sent in ED Endo: Maintain euglycemia Psych: Psych consulted- will follow up recs GI ppx: Protonix DVT ppx: Heparin Case seen, discussed and reviewed with attending. Lev Medina PGY2 - Date & Time Date: 03/05/17 Time: 00:05 <Chris Fallon Q - Last Filed: 03/05/17 00:36> Results - Vital Signs Recent Vital Signs: Last Vital Signs Temp 97.9 F 03/04/17 19:35 Pulse 83 03/04/17 21:45 Resp 22 03/04/17 21:45 BP 104/56 L 03/04/17 21:45 Pulse Ox 94 L 03/04/17 21:45 - Labs Result Diagrams: 03/04/17 19:00 03/04/17 19:00 Labs: Laboratory Results - last 24 hr 03/05/17 00:10 pCO2 47 H pO2 361.0 H HCO3 23.7 ABG pH 7.31 L ABG Total CO2 25.1 ABG O2 Saturation 99.9 H ABG O2 Content 17.7 ABG Base Excess -2.8 L ABG Hemoglobin 12.2 ABG Carboxyhemoglobin 1.6 H POC ABG HHb (Measured) 0.1 ABG Methemoglobin 0.9 ABG O2 Capacity 17.7 Hgb O2 Saturation 97.4 FiO2 100.0 Attending/Attestation - Attestation I have personally seen and examined this patient.: Yes I have fully participated in the care of the patient.: Yes I have reviewed all pertinent clinical information: Yes Notes (Text): 03/05/17 00:32 I agree with the above mentioned note and exam by the resident with the addition /exception of the followin51 y/o male with prior evaluations for heroin overdose was brought in by EMS when he was found unresponsive. Unclear exactly where the patient was or who called EMS, however he was also noted to have a bottle of Xanax pills (2mg tabs ) with about 10 pills left. Patient's prescription bottle showed a fill date for 03/03/17, so it is unclear exactly what he ingested, however his urine drug screen tested positive for both benzodiazepenes as well as opiates. ED attempted narcan IVP with some initial success and subsequently placed him on a narcan drip however the patient did not regain consciousness fully and remained obtunded. ABG showed hypercapnic respiratory failure, so he was intubated in the ED for airway protection as he was not a candidate for Bipap. Patient subsequently required IV Sedation after intubation as he was dysynchronous with the ventilator. Will attempt to wean sedation in the morning and assess his response with a breathing trial. Hemodynamically stable otherwise at this time. labs and images available thus far have been reviewed attempt to contact next of kin (mother) were unsuccessful; message left to call the hospital back Case d/w Dr. Jade in the ED at length total time of care: 45 minutes
[2017-03-05 00:23] LABS: ARTERIAL BLOOD GAS HCO3 23.7 mmol/L (21-28); ARTERIAL BLOOD GAS O2 CAPACITY 17.7 mL/dl (16-24); ARTERIAL BLOOD GAS O2 CONTENT 17.7 ML/dl (15-23); ARTERIAL BLOOD GAS PH 7.31 (7.35-7.45); ARTERIAL BLOOD HGB O2 SAT 97.4 % (95.0-98.0); CARBOXYHEMOGLOBIN 1.6 % (0.5-1.5); HHB 0.1 % (0-5); METHEMOGLOBIN 0.9 % (0.0-3.0)
[2017-03-05] MEDS: Propofol 10 mg/ml 1,000 MG/100 ML VIAL IV PRN (05:25)
[2017-03-05 06:04] LABS: ARTERIAL BLOOD GAS HCO3 22.2 mmol/L (21-28); ARTERIAL BLOOD GAS O2 CAPACITY 17.3 mL/dl (16-24); ARTERIAL BLOOD GAS PH 7.45 (7.35-7.45); CARBOXYHEMOGLOBIN 1.9 % (0.5-1.5); HHB 1.9 % (0-5); METHEMOGLOBIN 1.3 % (0.0-3.0)
[2017-03-05 06:11] LABS: BASO # 0.04 K/mm3 (0.0-2.0); BASO % 0.5 % (0.0-3.0); EOS # 0.1 (0.0-0.7); EOS % 1.4 % (1.5-5.0); GRAN # 5.24 (1.4-6.5); GRAN % 62.3 % (50.0-68.0); HEMATOCRIT 40.2 % (42.0-52.0); LYMPH # 2.3 (1.2-3.4); LYMPH % 27.1 % (22.0-35.0); MEAN CELL VOLUME 92.4 fl (80.0-105.0); MEAN CORPUSCULAR HEMOGLOBIN 30.3 pg (25.0-35.0); MEAN CORPUSCULAR HGB CONC 32.8 g/dl (31.0-37.0); MEAN PLATELET VOLUME 9.2 fl (7.0-11.0); MONO # 0.7 (0.1-0.6); MONO % 8.7 % (1.0-6.0); RED CELL DISTRIBUTION WIDTH 13.9 % (11.5-14.5); WHITE BLOOD COUNT 8.4 10^3/ul (4.5-11.0)
[2017-03-05 06:24] LABS: ALB/GLOB RATIO 1.4 (1.1-1.8); ALKALINE PHOSPHATASE 96 U/L (38-126); ALT/SGPT 49 U/L (7-56); AST/SGOT 50 U/L (17-59); BILIRUBIN,TOTAL 0.5 mg/dL (0.2-1.3); BLOOD UREA NITROGEN 17 mg/dL (7-21); CALCIUM 7.7 mg/dL (8.4-10.5); CARBON DIOXIDE 24 mmol/L (21-33); CHLORIDE 112 mmol/L (98-107); GFR AFRICAN-AMERICAN > 60; GLUCOSE,RANDOM 90 mg/dL (70-110); POTASSIUM 3.6 mmol/L (3.6-5.0); SODIUM 144 mmol/L (132-148); TOTAL PROTEIN 5.9 g/dL (5.8-8.3)
[2017-03-05 08:35] VITALS: BMI 32.9
--- NOTE | 2017-03-05 08:43 | CARD ---
APPROVED REPORT EKG Measurement Heart [id number] <Conclusion> Normal sinus rhythm Normal ECG No change
--- NOTE | 2017-03-05 09:22 | CP.PCM.PCO ---
Physician Communication Note - Physician Communication Note Physician Communication Note: Pt still intubated, psychiatry will attempt interview in AM tomorrow
--- NOTE | 2017-03-05 10:24 | RAD ---
PROCEDURE: CHEST RADIOGRAPH, 1 VIEW HISTORY: ams COMPARISON: 11/10/2016 FINDINGS: LUNGS: Lungs clear. PLEURA: No pneumothorax or pleural fluid seen. CARDIOVASCULAR: Normal. OSSEOUS STRUCTURES: No significant abnormalities. VISUALIZED UPPER ABDOMEN: Normal. OTHER FINDINGS: None. IMPRESSION: No acute infiltrate.
--- NOTE | 2017-03-05 11:06 | CP.CCUPN ---
CCU Subjective - Physician Review Events Since Last Encounter (Free Text): 03/05/17 11:03 Overnight presented to the ICU due to respiratory failure in the setting of AMS from presumed intoxication. Remains intubated, agitated with sedation vacation. CCU Objective - Vital Signs / Intake & Output Vital Signs (Last 4 hours): Vital Signs Temp Pulse Pulse Pulse Resp BP Pulse Ox 03/05/17 08:00 98.6 F 74 03/05/17 07:42 96.9 F L 85 85 85 19 95/62 L 03/05/17 07:16 20 98 Intake and Output (Last 8hrs): Intake & Output 03/04/17 03/05/17 03/05/17 22:59 06:59 14:59 Intake Total 1247 80 Output Total 800 Balance 447 80 Weight 198 lb Intake: IV 1247 80 Propofol 97 Right Antecubital 1050 Output: Drainage 200 OGT 200 Urine 600 Urethral (Zhang) 600 Other: Voiding Method Indwelling Catheter - Physical Exam Head: Positive for: Atraumatic, Normocephalic Pupils: Positive for: PERRL Extroacular Muscles: Positive for: EOMI Conjunctiva: Positive for: Normal Mouth: Positive for: Moist Mucous Membranes Neck: Positive for: Normal Range of Motion Respiratory/Chest: Positive for: Clear to Auscultation, Good Air Exchange. Negative for: Respiratory Distress, Accessory Muscle Use Cardiovascular: Positive for: Regular Rate and Rhythm, Normal S1, S2. Negative for: Murmurs Abdomen: Positive for: Normal Bowel Sounds. Negative for: Tenderness, Distention, Peritoneal Signs Back: Positive for: Normal Inspection Upper Extremity: Positive for: Normal Inspection. Negative for: Cyanosis, Edema Lower Extremity: Positive for: Normal Inspection. Negative for: Edema Neurological: Positive for: GCS=15, CN II-XII Intact, Other (intubated and sedated ). Negative for: Speech Normal Skin: Positive for: Warm, Dry, Normal Color. Negative for: Rashes Psychiatric: Positive for: Lethargic - Medications Active Medications: Active Medications Generic Name Dose Route Start Last Admin Trade Name Freq PRN Reason Stop Dose Admin Heparin Sodium (Porcine) 5,000 units 03/05/17 10:00 03/05/17 09:59 Heparin SC 5,000 units Q12 EDVIN Administration Protocol Propofol 1,000 mg in 100 mls @ 2.313 mls/hr 03/04/17 22:33 03/05/17 10:40 Diprivan IV 10 mcg/kg/min .Q24H PRN 4.626 mls/hr TITRATE PER MD ORDER Titration Protocol 5 MCG/KG/MIN Sodium Chloride 1,000 mls @ 150 mls/hr 03/05/17 05:36 Sodium Chloride 0.9% IV .Q6H40M EDVIN Pantoprazole Sodium 40 mg 03/05/17 10:00 03/05/17 09:59 Protonix Inj IVP 40 mg DAILY EDVIN Administration - Patient Studies Lab Studies: Lab Studies 03/05/17 03/05/17 03/05/17 Range/Units 05:45 05:30 05:30 WBC 8.4 (4.5-11.0) 10^3/ul RBC 4.35 (3.5-6.1) 10^6/uL Hgb 13.2 L (14.0-18.0) g/dL Hct 40.2 L (42.0-52.0) % MCV 92.4 (80.0-105.0) fl MCH 30.3 (25.0-35.0) pg MCHC 32.8 (31.0-37.0) g/dl RDW 13.9 (11.5-14.5) % Plt Count 230 (120.0-450.0) 10^3/uL MPV 9.2 (7.0-11.0) fl Gran % 62.3 (50.0-68.0) % Lymph % (Auto) 27.1 (22.0-35.0) % [place] % (Auto) 8.7 H (1.0-6.0) % Eos % (Auto) 1.4 L (1.5-5.0) % Baso % (Auto) 0.5 (0.0-3.0) % Gran # 5.24 (1.4-6.5) Lymph # 2.3 (1.2-3.4) [place] # 0.7 H (0.1-0.6) Eos # 0.1 (0.0-0.7) Baso # 0.04 (0.0-2.0) K/mm3 pCO2 32 L (35-45) mm/Hg pO2 82.0 (80-100) mm/Hg HCO3 22.2 (21-28) mmol/L ABG pH 7.45 (7.35-7.45) ABG Total CO2 23.2 (22-28) mmol.L ABG O2 Saturation 98.0 (95-98) % ABG O2 Content 17.0 (15-23) ML/dl ABG Base Excess -1.1 (-2.0-3.0) mmol/L ABG Hemoglobin 12.7 (11.7-17.4) g/dL ABG Carboxyhemoglobin 1.9 H (0.5-1.5) % POC ABG HHb (Measured) 1.9 (0-5) % ABG Methemoglobin 1.3 (0.0-3.0) % ABG O2 Capacity 17.3 (16-24) mL/dl Hgb O2 Saturation 95.0 (95.0-98.0) % FiO2 35.0 % Sodium 144 (132-148) mmol/L Potassium 3.6 (3.6-5.0) mmol/L Chloride 112 H (98-107) mmol/L Carbon Dioxide 24 (21-33) mmol/L Anion Gap 12 (10-20) BUN 17 (7-21) mg/dL Creatinine 0.7 (0.5-1.4) mg/dL Est GFR ( Amer) > 60 Est GFR (Non-Af Amer) > 60 Random Glucose 90 (70-110) mg/dL Calcium 7.7 L (8.4-10.5) mg/dL Total Bilirubin 0.5 (0.2-1.3) mg/dL AST 50 (17-59) U/L ALT 49 (7-56) U/L Alkaline Phosphatase 96 (38-126) U/L Total Protein 5.9 (5.8-8.3) g/dL Albumin 3.4 (3.0-4.8) g/dL Globulin 2.4 gm/dL Albumin/Globulin Ratio 1.4 (1.1-1.8) 03/05/17 Range/Units 00:10 WBC (4.5-11.0) 10^3/ul RBC (3.5-6.1) 10^6/uL Hgb (14.0-18.0) g/dL Hct (42.0-52.0) % MCV (80.0-105.0) fl MCH (25.0-35.0) pg MCHC (31.0-37.0) g/dl RDW (11.5-14.5) % Plt Count (120.0-450.0) 10^3/uL MPV (7.0-11.0) fl Gran % (50.0-68.0) % Lymph % (Auto) (22.0-35.0) % [place] % (Auto) (1.0-6.0) % Eos % (Auto) (1.5-5.0) % Baso % (Auto) (0.0-3.0) % Gran # (1.4-6.5) Lymph # (1.2-3.4) [place] # (0.1-0.6) Eos # (0.0-0.7) Baso # (0.0-2.0) K/mm3 pCO2 47 H (35-45) mm/Hg pO2 361.0 H (80-100) mm/Hg HCO3 23.7 (21-28) mmol/L ABG pH 7.31 L (7.35-7.45) ABG Total CO2 25.1 (22-28) mmol.L ABG O2 Saturation 99.9 H (95-98) % ABG O2 Content 17.7 (15-23) ML/dl ABG Base Excess -2.8 L (-2.0-3.0) mmol/L ABG Hemoglobin 12.2 (11.7-17.4) g/dL ABG Carboxyhemoglobin 1.6 H (0.5-1.5) % POC ABG HHb (Measured) 0.1 (0-5) % ABG Methemoglobin 0.9 (0.0-3.0) % ABG O2 Capacity 17.7 (16-24) mL/dl Hgb O2 Saturation 97.4 (95.0-98.0) % FiO2 100.0 % Sodium (132-148) mmol/L Potassium (3.6-5.0) mmol/L Chloride (98-107) mmol/L Carbon Dioxide (21-33) mmol/L Anion Gap (10-20) BUN (7-21) mg/dL Creatinine (0.5-1.4) mg/dL Est GFR ( Amer) Est GFR (Non-Af Amer) Random Glucose (70-110) mg/dL Calcium (8.4-10.5) mg/dL Total Bilirubin (0.2-1.3) mg/dL AST (17-59) U/L ALT (7-56) U/L Alkaline Phosphatase (38-126) U/L Total Protein (5.8-8.3) g/dL Albumin (3.0-4.8) g/dL Globulin gm/dL Albumin/Globulin Ratio (1.1-1.8) Laboratory Results - last 24 hr 03/05/17 03/05/17 03/05/17 00:10 05:30 05:30 WBC 8.4 RBC 4.35 Hgb 13.2 L Hct 40.2 L MCV 92.4 MCH 30.3 MCHC 32.8 RDW 13.9 Plt Count 230 MPV 9.2 Gran % 62.3 Lymph % (Auto) 27.1 [place] % (Auto) 8.7 H Eos % (Auto) 1.4 L Baso % (Auto) 0.5 Gran # 5.24 Lymph # 2.3 [place] # 0.7 H Eos # 0.1 Baso # 0.04 pCO2 47 H pO2 361.0 H HCO3 23.7 ABG pH 7.31 L ABG Total CO2 25.1 ABG O2 Saturation 99.9 H ABG O2 Content 17.7 ABG Base Excess -2.8 L ABG Hemoglobin 12.2 ABG Carboxyhemoglobin 1.6 H POC ABG HHb (Measured) 0.1 ABG Methemoglobin 0.9 ABG O2 Capacity 17.7 Hgb O2 Saturation 97.4 FiO2 100.0 Sodium 144 Potassium 3.6 Chloride 112 H Carbon Dioxide 24 Anion Gap 12 BUN 17 Creatinine 0.7 Est GFR ( Amer) > 60 Est GFR (Non-Af Amer) > 60 Random Glucose 90 Calcium 7.7 L Total Bilirubin 0.5 AST 50 ALT 49 Alkaline Phosphatase 96 Total Protein 5.9 Albumin 3.4 Globulin 2.4 Albumin/Globulin Ratio 1.4 03/05/17 05:45 WBC RBC Hgb Hct MCV MCH MCHC RDW Plt Count MPV Gran % Lymph % (Auto) [place] % (Auto) Eos % (Auto) Baso % (Auto) Gran # Lymph # [place] # Eos # Baso # pCO2 32 L pO2 82.0 HCO3 22.2 ABG pH 7.45 ABG Total CO2 23.2 ABG O2 Saturation 98.0 ABG O2 Content 17.0 ABG Base Excess -1.1 ABG Hemoglobin 12.7 ABG Carboxyhemoglobin 1.9 H POC ABG HHb (Measured) 1.9 ABG Methemoglobin 1.3 ABG O2 Capacity 17.3 Hgb O2 Saturation 95.0 FiO2 35.0 Sodium Potassium Chloride Carbon Dioxide Anion Gap BUN Creatinine Est GFR ( Amer) Est GFR (Non-Af Amer) Random Glucose Calcium Total Bilirubin AST ALT Alkaline Phosphatase Total Protein Albumin Globulin Albumin/Globulin Ratio Review of Systems - Review of Systems Systems not reviewed;Unavailable: Altered Mental Status Critical Care Progress Note - Ventilator Checklist Daily Assessment of Readiness to Wean: Yes Daily Spontaneous Breathing Trial: Yes PUD Prophalyxis: Yes DVT Prophylaxis: Yes Oral Care with Chlorhexidine Gluconate {CHG}: Yes - Nutrition Nutrition: Nutrition Category Date Time Status NPO Diet [DIET] Diets 03/04/17 Breakfast Ordered Assessment/Plan - Assessment and Plan (Free Text) Assessment: 51 y/o M w/ acute respiratory failure with the inability to protect his airway. Intubated , ABG WNL. Sedation vacation tried and SBT trial, RR > 30 , tacycardia and agitation. Will try to gain more history from family about his addiction and medical history. Will monitor for Benzo, alcohol and opiod withdrawl. May change propofol to precedex to help extubate. Labs , xr reviewed. No acute findings . dvt p ppi cc time 65 min
[2017-03-05] MEDS ORDERED: Dexmedetomidine HCl 4mcg/ml 400 MCG/100 ML BOTTLE IV PRN (11:20)
[2017-03-05] MEDS ORDERED: Sodium Chloride 0.9% 1,000 ML IV STA (11:44)
--- NOTE | 2017-03-05 12:05 | CP.PCM.PN ---
Subjective - Date & Time of Evaluation Date of Evaluation: 03/05/17 Time of Evaluation: 10:00 - Subjective Subjective: Hospitalist Service Progress Note: Patient seen and examined at the bedside. Patient is currently intubated on sedation. Patient family is at the bedside. Attempted sedation vacation this am but patient became agitated. Objective - Vital Signs/Intake and Output Vital Signs (last 24 hours): Temp Pulse Resp BP Pulse Ox 98.6 F 97 H 19 95/62 L 98 03/05/17 08:00 03/05/17 10:00 03/05/17 07:42 03/05/17 07:42 03/05/17 07:16 Intake and Output: 03/05/17 03/05/17 06:59 18:59 Intake Total 1247 92 Output Total 800 Balance 447 92 - Medications Medications: Current Medications Heparin Sodium (Porcine) (Heparin) 5,000 units SC Q12 EDVIN PRN Reason: Protocol Last Admin: 03/05/17 09:59 Dose: 5,000 units Propofol (Diprivan) 1,000 mg in 100 mls @ 2.313 mls/hr IV .Q24H PRN; Protocol; 5 MCG/KG/MIN PRN Reason: TITRATE PER MD ORDER Last Titration: 03/05/17 11:29 Dose: 0 mcg/kg/min, 0 mls/hr Sodium Chloride (Sodium Chloride 0.9%) 1,000 mls @ 150 mls/hr IV .Q6H40M [facility] Dexmedetomidine HCl (Precedex 4 Mcg/Ml (100 Ml)) 400 mcg in 100 mls @ 4.491 mls /hr IV .U70V44H PRN; Protocol; 0.2 MCG/KG/HR PRN Reason: Agitation Last Admin: 03/05/17 11:29 Dose: 0.2 mcg/kg/hr, 4.491 mls/hr Sodium Chloride (Sodium Chloride 0.9%) 1,000 mls @ 999 mls/hr IV .Q1H1M STA Stop: 03/05/17 12:44 Pantoprazole Sodium (Protonix Inj) 40 mg IVP DAILY [facility] Last Admin: 03/05/17 09:59 Dose: 40 mg - Labs Labs: 03/05/17 05:30 03/05/17 05:30 PT 10.0 Seconds (9.9-11.8) 03/04/17 19:00 INR 0.93 (0.93-1.08) 03/04/17 19:00 APTT 28.4 Seconds (23.7-30.8) 03/04/17 19:00 - Head Exam Head Exam: ATRAUMATIC - Eye Exam Eye Exam: Normal appearance - ENT Exam ENT Exam: Mucous Membranes Moist - Respiratory Exam Respiratory Exam: Clear to Ausculation Bilateral, NORMAL BREATHING PATTERN. absent: Rales, Rhonchi, Wheezes Additional comments: Ventilator breath sounds appreciated - Cardiovascular Exam Cardiovascular Exam: REGULAR RHYTHM, +S1, +S2 - GI/Abdominal Exam GI & Abdominal Exam: Soft. absent: Guarding, Rigid, Tenderness - Extremities Exam Extremities Exam: Full ROM, Normal Inspection - Back Exam Back Exam: NORMAL INSPECTION - Neurological Exam Neurological Exam: absent: Alert (Intubated and sedated) Additional comments: GCS: 15 - Skin Skin Exam: Dry, Normal Color, Warm Assessment and Plan - Assessment and Plan (Free Text) Assessment: 51 year old Male with PMH of polysubstance abuse came to ED for AMS secondary to heroin and benzo overdose. Patient was intubated for airway protection. Per the family patient has a history of drug overdose, not requiring intubation. Poison control was notified. Plan: 1. Acute Respiratory Failure 2/2 to AMS due to Heroin/Benzodiazapine overdose -Currently Intubated and sedated with propofol -S/P narcan drip in the ED, patient was still obtunded after administration and was unable to protect airway -ABG on admission showed respiratory acidosis, ABG today within normal limits -Attempted sedation vacation, however patient became tachycardic and agitated -Head CT negative for acute pathology -F/U matthews cultures -Protective lung ventilation strategy (HOB elevated, aspiration precautions) 2. Polysubstance abuse -Urine tox positive for benzo and opiate -Per the family, patient has been on xanax in the past -States that patient buys prescription for xanax and gets them filled -Posion control notified -Will monitor for withdrawal symptoms -Lobito consulted, f/u recommendations GI/DVT ppx: Protonix Heparin
--- NOTE | 2017-03-05 13:04 | RAD ---
HISTORY: post intubation COMPARISON: 03/04/2017 at 9:25 p.m. FINDINGS: LUNGS: No active pulmonary disease. PLEURA: No significant pleural effusion identified, no pneumothorax apparent. CARDIOVASCULAR: Normal heart size. ET tube tip situated approximately 2.6 cm above tracheal cristina. Nasogastric tube extends to left upper quadrant of abdomen. OSSEOUS STRUCTURES: No significant abnormalities. VISUALIZED UPPER ABDOMEN: Normal. OTHER FINDINGS: None. IMPRESSION: ET tube and NG tube in grossly appropriate position.
[2017-03-05] MEDS: Sodium Chloride 0.9% 1,000 ML IV SCH ×2 (13:18→21:31)
[2017-03-06] MEDS: Sodium Chloride 0.9% 1,000 ML IV SCH (05:20)
[2017-03-06 06:14] LABS: BASO # 0.02 K/mm3 (0.0-2.0); BASO % 0.2 % (0.0-3.0); EOS # 0.1 (0.0-0.7); EOS % 0.7 % (1.5-5.0); GRAN # 5.86 (1.4-6.5); GRAN % 65.9 % (50.0-68.0); HEMATOCRIT 40.7 % (42.0-52.0); LYMPH # 2.1 (1.2-3.4); MEAN CELL VOLUME 93.1 fl (80.0-105.0); MEAN CORPUSCULAR HEMOGLOBIN 31.1 pg (25.0-35.0); MEAN CORPUSCULAR HGB CONC 33.4 g/dl (31.0-37.0); MEAN PLATELET VOLUME 9.8 fl (7.0-11.0); MONO # 0.8 (0.1-0.6); MONO % 9.2 % (1.0-6.0); RED CELL DISTRIBUTION WIDTH 13.9 % (11.5-14.5); WHITE BLOOD COUNT 8.9 10^3/ul (4.5-11.0)
[2017-03-06 06:27] LABS: ALB/GLOB RATIO 1.4 (1.1-1.8); ALKALINE PHOSPHATASE 90 U/L (38-126); ALT/SGPT 38 U/L (7-56); AST/SGOT 34 U/L (17-59); BILIRUBIN,TOTAL 0.6 mg/dL (0.2-1.3); BLOOD UREA NITROGEN 9 mg/dL (7-21); CALCIUM 8.6 mg/dL (8.4-10.5); CARBON DIOXIDE 23 mmol/L (21-33); CHLORIDE 109 mmol/L (98-107); GFR AFRICAN-AMERICAN > 60; GLUCOSE,RANDOM 105 mg/dL (70-110); MAGNESIUM 1.8 mg/dL (1.7-2.2); PHOSPHOROUS 2.5 mg/dL (2.5-4.5); POTASSIUM 3.8 mmol/L (3.6-5.0); SODIUM 143 mmol/L (132-148); TOTAL PROTEIN 6.2 g/dL (5.8-8.3)
[2017-03-06 07:04] VITALS: BP 144/77; PULSE 47; RESP 54; O2SAT 98
[2017-03-06 07:11] VITALS: TEMP 98.4
--- NOTE | 2017-03-06 07:52 | CARD ---
APPROVED REPORT EKG Measurement Heart [id number] <Conclusion> Sinus tachycardia RVCD Normal ECG No change
--- NOTE | 2017-03-06 09:13 | CP.PCM.PCO ---
Physician Communication Note - Physician Communication Note Physician Communication Note: correction to my note, pt does not have PNA as per medical team
--- NOTE | 2017-03-06 12:48 | CP.PCM.DIS ---
<Bere King - Last Filed: 03/06/17 21:01> Provider - Provider Date of Admission: 03/04/17 22:19 Attending physician: Gordy Higginbotham MD Primary care physician: Álvaro Mon MD Time Spent in preparation of Discharge (in minutes): 30 Hospital Course - Lab Results Lab Results: Micro Results 03/04/17 23:30 Naris MRSA Culture (Admit) - Final MRSA NOT DETECTED Most Recent Lab Values WBC 8.9 10^3/ul (4.5-11.0) 03/06/17 05:50 RBC 4.37 10^6/uL (3.5-6.1) 03/06/17 05:50 Hgb 13.6 g/dL (14.0-18.0) L 03/06/17 05:50 Hct 40.7 % (42.0-52.0) L 03/06/17 05:50 MCV 93.1 fl (80.0-105.0) 03/06/17 05:50 MCH 31.1 pg (25.0-35.0) 03/06/17 05:50 MCHC 33.4 g/dl (31.0-37.0) 03/06/17 05:50 RDW 13.9 % (11.5-14.5) 03/06/17 05:50 Plt Count 239 10^3/uL (120.0-450.0) 03/06/17 05:50 MPV 9.8 fl (7.0-11.0) 03/06/17 05:50 Gran % 65.9 % (50.0-68.0) 03/06/17 05:50 Lymph % (Auto) 24.0 % (22.0-35.0) 03/06/17 05:50 Mcclain % (Auto) 9.2 % (1.0-6.0) H 03/06/17 05:50 Eos % (Auto) 0.7 % (1.5-5.0) L 03/06/17 05:50 Baso % (Auto) 0.2 % (0.0-3.0) 03/06/17 05:50 Gran # 5.86 (1.4-6.5) 03/06/17 05:50 Lymph # 2.1 (1.2-3.4) 03/06/17 05:50 Mcclain # 0.8 (0.1-0.6) H 03/06/17 05:50 Eos # 0.1 (0.0-0.7) 03/06/17 05:50 Baso # 0.02 K/mm3 (0.0-2.0) 03/06/17 05:50 PT 10.0 Seconds (9.9-11.8) 03/04/17 19:00 INR 0.93 (0.93-1.08) 03/04/17 19:00 APTT 28.4 Seconds (23.7-30.8) 03/04/17 19:00 pCO2 32 mm/Hg (35-45) L 03/05/17 05:45 pO2 82.0 mm/Hg (80-100) 03/05/17 05:45 HCO3 22.2 mmol/L (21-28) 03/05/17 05:45 ABG pH 7.45 (7.35-7.45) 03/05/17 05:45 ABG Total CO2 23.2 mmol.L (22-28) 03/05/17 05:45 ABG O2 Saturation 98.0 % (95-98) 03/05/17 05:45 ABG O2 Content 17.0 ML/dl (15-23) 03/05/17 05:45 ABG Base Excess -1.1 mmol/L (-2.0-3.0) 03/05/17 05:45 ABG Hemoglobin 12.7 g/dL (11.7-17.4) 03/05/17 05:45 ABG Carboxyhemoglobin 1.9 % (0.5-1.5) H 03/05/17 05:45 POC ABG HHb (Measured) 1.9 % (0-5) 03/05/17 05:45 ABG Methemoglobin 1.3 % (0.0-3.0) 03/05/17 05:45 ABG O2 Capacity 17.3 mL/dl (16-24) 03/05/17 05:45 Hgb O2 Saturation 95.0 % (95.0-98.0) 03/05/17 05:45 FiO2 35.0 % 03/05/17 05:45 Sodium 143 mmol/L (132-148) 03/06/17 05:50 Potassium 3.8 mmol/L (3.6-5.0) 03/06/17 05:50 Chloride 109 mmol/L (98-107) H 03/06/17 05:50 Carbon Dioxide 23 mmol/L (21-33) 03/06/17 05:50 Anion Gap 15 (10-20) 03/06/17 05:50 BUN 9 mg/dL (7-21) 03/06/17 05:50 Creatinine 0.8 mg/dL (0.5-1.4) 03/06/17 05:50 Est GFR ( Amer) > 60 03/06/17 05:50 Est GFR (Non-Af Amer) > 60 03/06/17 05:50 POC Glucose (mg/dL) 106 mg/dL (65-110) 03/06/17 07:29 Random Glucose 105 mg/dL (70-110) 03/06/17 05:50 Calcium 8.6 mg/dL (8.4-10.5) 03/06/17 05:50 Phosphorus 2.5 mg/dL (2.5-4.5) 03/06/17 05:50 Magnesium 1.8 mg/dL (1.7-2.2) 03/06/17 05:50 Total Bilirubin 0.6 mg/dL (0.2-1.3) 03/06/17 05:50 AST 34 U/L (17-59) 03/06/17 05:50 ALT 38 U/L (7-56) 03/06/17 05:50 Alkaline Phosphatase 90 U/L (38-126) 03/06/17 05:50 Ammonia 15 umol/L (9-33) 03/04/17 20:14 Lactate Dehydrogenase 886 U/L (333-699) H 03/04/17 19:00 Total Creatine Kinase 656 U/L (35-230) H 03/04/17 19:00 CK-MB (CK-2) 5.6 ng/mL (0.0-3.6) H 03/04/17 19:00 CK-MB (CK-2) % 0.9 % (2.5-3.0) L 03/04/17 19:00 Troponin I < 0.01 ng/mL 03/04/17 19:00 Total Protein 6.2 g/dL (5.8-8.3) 03/06/17 05:50 Albumin 3.6 g/dL (3.0-4.8) 03/06/17 05:50 Globulin 2.6 gm/dL 03/06/17 05:50 Albumin/Globulin Ratio 1.4 (1.1-1.8) 03/06/17 05:50 Urine Color Yellow (YELLOW) 03/04/17 19:00 Urine Appearance Clear (CLEAR) 03/04/17 19:00 Urine pH 6.5 (4.7-8.0) 03/04/17 19:00 Ur Specific Bacova 1.020 (1.005-1.035) 03/04/17 19:00 Urine Protein Negative mg/dL (<30 mg/dL) 03/04/17 19:00 Urine Glucose (UA) Negative mg/dL (NEGATIVE) 03/04/17 19:00 Urine Ketones Trace mg/dL (NEGATIVE) H 03/04/17 19:00 Urine Blood Negative (NEGATIVE) 03/04/17 19:00 Urine Nitrate Negative (NEGATIVE) 03/04/17 19:00 Urine Bilirubin Negative (NEGATIVE) 03/04/17 19:00 Urine Urobilinogen 0.2 E.U./dL (<1 E.U./dL) 03/04/17 19:00 Ur Leukocyte Esterase Negative Janie/uL (NEGATIVE) 03/04/17 19:00 Salicylates < 1 mg/dL (2.0-20.0) L 03/04/17 19:00 Urine Opiates Screen Positive (NEGATIVE) H 03/04/17 19:00 Urine Methadone Screen Negative (NEGATIVE) 03/04/17 19:00 Acetaminophen < 10.0 ug/ml (10.0-20.0) L 03/04/17 19:00 Ur Barbiturates Screen Negative (NEGATIVE) 03/04/17 19:00 Ur Phencyclidine Scrn Negative (NEGATIVE) 03/04/17 19:00 Ur Amphetamines Screen Negative (NEGATIVE) 03/04/17 19:00 U Benzodiazepines Scrn Positive (NEGATIVE) 03/04/17 19:00 U Oth Cocaine Metabols Negative (NEGATIVE) 03/04/17 19:00 U Cannabinoids Screen Negative (NEGATIVE) 03/04/17 19:00 Alcohol, Quantitative < 10 mg/dL (0-10) 03/04/17 19:00 - Hospital Course Hospital Course: Patient is a 51 year old male with PMH of polysubstance abuse came to ED for AMS. Patient was found unconscious at a friends house where they were doing heroin. He was brought in by ambulance and was found to have a prescription of Xanax 2mg for 90 pills filled on 03/03/[address] Garzon. Only 10 pills were found in the bottle. In the ED, patient was found to be positive for opiates and benzos only. He was placed on Narcan drip with minimal response. Patient was intubated for airway protection. Patient has been seen for heroin overdose in the past. Patient was admitted to the ICU. Posion control was notified. CT head showed non specific white matter changes. CXR showed no acute infiltrate. Blood cx and urine cx were negative. Patient was monitored closely for withdrawals. When patient was less agitated, he was successfully extubated. Upon further questioning, patient stated on night of admission he snorted a bag of heroin and xanax. Patient refused to inform us who he got the xanax from. On 03/06/17 patient wanted to sign out AMA. Attempts by medical staff were made to convince the patient to stay and continue treatment, patient was adament about leaving. Patient refused to see family welfare social work professor and stated that he will go back to using heroin again. Stated that he has gone to rehab before in the past. Risks of signing out were discussed with the patient and he continued to refuse to stay. Prior to leaving patient was seen and evaluated by psychiatry. Patient denied any suicidal or homicidal ideation. Patient advised to follow up with PMD upon discharge. Discharge Exam - Head Exam Head Exam: ATRAUMATIC - Eye Exam Eye Exam: EOMI, Normal appearance Pupil Exam: NORMAL ACCOMODATION - ENT Exam ENT Exam: Mucous Membranes Moist - Neck Exam Neck exam: Full Rom - Respiratory Exam Respiratory Exam: Clear to PA & Lateral, UNREMARKABLE. absent: Rales, Rhonchi, Wheezes - Cardiovascular Exam Cardiovascular Exam: REGULAR RHYTHM, +S1, +S2 - GI/Abdominal Exam GI & Abdominal Exam: Normal Bowel Sounds, Soft. absent: Rebound, Rigid, Tenderness - Rectal Exam Rectal Exam: Deferred - Extremities Exam Extremities exam: normal inspection, pedal pulses present - Back Exam Back exam: NORMAL INSPECTION - Neurological Exam Neurological exam: Alert, Normal Gait, Oriented x3 - Psychiatric Exam Psychiatric exam: Normal Affect, Normal Mood - Skin Skin Exam: Normal Color, Warm Discharge Plan - Follow Up Plan Condition: CRITICAL Disposition: AGAINST MEDICAL ADVICE Referrals: Álvaro Mon MD [Primary Care Provider] - <Gordy Higginbotham - Last Filed: 03/07/17 11:21> Provider - Provider Date of Admission: 03/04/17 22:19 Attending physician: Gordy Higginbotham MD Primary care physician: Álvaro Mon MD Hospital Course - Lab Results Lab Results: Micro Results 03/04/17 23:30 Naris MRSA Culture (Admit) - Final MRSA NOT DETECTED Most Recent Lab Values WBC 8.9 10^3/ul (4.5-11.0) 03/06/17 05:50 RBC 4.37 10^6/uL (3.5-6.1) 03/06/17 05:50 Hgb 13.6 g/dL (14.0-18.0) L 03/06/17 05:50 Hct 40.7 % (42.0-52.0) L 03/06/17 05:50 MCV 93.1 fl (80.0-105.0) 03/06/17 05:50 MCH 31.1 pg (25.0-35.0) 03/06/17 05:50 MCHC 33.4 g/dl (31.0-37.0) 03/06/17 05:50 RDW 13.9 % (11.5-14.5) 03/06/17 05:50 Plt Count 239 10^3/uL (120.0-450.0) 03/06/17 05:50 MPV 9.8 fl (7.0-11.0) 03/06/17 05:50 Gran % 65.9 % (50.0-68.0) 03/06/17 05:50 Lymph % (Auto) 24.0 % (22.0-35.0) 03/06/17 05:50 Mcclain % (Auto) 9.2 % (1.0-6.0) H 03/06/17 05:50 Eos % (Auto) 0.7 % (1.5-5.0) L 03/06/17 05:50 Baso % (Auto) 0.2 % (0.0-3.0) 03/06/17 05:50 Gran # 5.86 (1.4-6.5) 03/06/17 05:50 Lymph # 2.1 (1.2-3.4) 03/06/17 05:50 Mcclain # 0.8 (0.1-0.6) H 03/06/17 05:50 Eos # 0.1 (0.0-0.7) 03/06/17 05:50 Baso # 0.02 K/mm3 (0.0-2.0) 03/06/17 05:50 PT 10.0 Seconds (9.9-11.8) 03/04/17 19:00 INR 0.93 (0.93-1.08) 03/04/17 19:00 APTT 28.4 Seconds (23.7-30.8) 03/04/17 19:00 pCO2 32 mm/Hg (35-45) L 03/05/17 05:45 pO2 82.0 mm/Hg (80-100) 03/05/17 05:45 HCO3 22.2 mmol/L (21-28) 03/05/17 05:45 ABG pH 7.45 (7.35-7.45) 03/05/17 05:45 ABG Total CO2 23.2 mmol.L (22-28) 03/05/17 05:45 ABG O2 Saturation 98.0 % (95-98) 03/05/17 05:45 ABG O2 Content 17.0 ML/dl (15-23) 03/05/17 05:45 ABG Base Excess -1.1 mmol/L (-2.0-3.0) 03/05/17 05:45 ABG Hemoglobin 12.7 g/dL (11.7-17.4) 03/05/17 05:45 ABG Carboxyhemoglobin 1.9 % (0.5-1.5) H 03/05/17 05:45 POC ABG HHb (Measured) 1.9 % (0-5) 03/05/17 05:45 ABG Methemoglobin 1.3 % (0.0-3.0) 03/05/17 05:45 ABG O2 Capacity 17.3 mL/dl (16-24) 03/05/17 05:45 Hgb O2 Saturation 95.0 % (95.0-98.0) 03/05/17 05:45 FiO2 35.0 % 03/05/17 05:45 Sodium 143 mmol/L (132-148) 03/06/17 05:50 Potassium 3.8 mmol/L (3.6-5.0) 03/06/17 05:50 Chloride 109 mmol/L (98-107) H 03/06/17 05:50 Carbon Dioxide 23 mmol/L (21-33) 03/06/17 05:50 Anion Gap 15 (10-20) 03/06/17 05:50 BUN 9 mg/dL (7-21) 03/06/17 05:50 Creatinine 0.8 mg/dL (0.5-1.4) 03/06/17 05:50 Est GFR ( Amer) > 60 03/06/17 05:50 Est GFR (Non-Af Amer) > 60 03/06/17 05:50 POC Glucose (mg/dL) 106 mg/dL (65-110) 03/06/17 07:29 Random Glucose 105 mg/dL (70-110) 03/06/17 05:50 Calcium 8.6 mg/dL (8.4-10.5) 03/06/17 05:50 Phosphorus 2.5 mg/dL (2.5-4.5) 03/06/17 05:50 Magnesium 1.8 mg/dL (1.7-2.2) 03/06/17 05:50 Total Bilirubin 0.6 mg/dL (0.2-1.3) 03/06/17 05:50 AST 34 U/L (17-59) 03/06/17 05:50 ALT 38 U/L (7-56) 03/06/17 05:50 Alkaline Phosphatase 90 U/L (38-126) 03/06/17 05:50 Ammonia 15 umol/L (9-33) 03/04/17 20:14 Lactate Dehydrogenase 886 U/L (333-699) H 03/04/17 19:00 Total Creatine Kinase 656 U/L (35-230) H 03/04/17 19:00 CK-MB (CK-2) 5.6 ng/mL (0.0-3.6) H 03/04/17 19:00 CK-MB (CK-2) % 0.9 % (2.5-3.0) L 03/04/17 19:00 Troponin I < 0.01 ng/mL 03/04/17 19:00 Total Protein 6.2 g/dL (5.8-8.3) 03/06/17 05:50 Albumin 3.6 g/dL (3.0-4.8) 03/06/17 05:50 Globulin 2.6 gm/dL 03/06/17 05:50 Albumin/Globulin Ratio 1.4 (1.1-1.8) 03/06/17 05:50 Urine Color Yellow (YELLOW) 03/04/17 19:00 Urine Appearance Clear (CLEAR) 03/04/17 19:00 Urine pH 6.5 (4.7-8.0) 03/04/17 19:00 Ur Specific Bacova 1.020 (1.005-1.035) 03/04/17 19:00 Urine Protein Negative mg/dL (<30 mg/dL) 03/04/17 19:00 Urine Glucose (UA) Negative mg/dL (NEGATIVE) 03/04/17 19:00 Urine Ketones Trace mg/dL (NEGATIVE) H 03/04/17 19:00 Urine Blood Negative (NEGATIVE) 03/04/17 19:00 Urine Nitrate Negative (NEGATIVE) 03/04/17 19:00 Urine Bilirubin Negative (NEGATIVE) 03/04/17 19:00 Urine Urobilinogen 0.2 E.U./dL (<1 E.U./dL) 03/04/17 19:00 Ur Leukocyte Esterase Negative Janie/uL (NEGATIVE) 03/04/17 19:00 Salicylates < 1 mg/dL (2.0-20.0) L 03/04/17 19:00 Urine Opiates Screen Positive (NEGATIVE) H 03/04/17 19:00 Urine Methadone Screen Negative (NEGATIVE) 03/04/17 19:00 Acetaminophen < 10.0 ug/ml (10.0-20.0) L 03/04/17 19:00 Ur Barbiturates Screen Negative (NEGATIVE) 03/04/17 19:00 Ur Phencyclidine Scrn Negative (NEGATIVE) 03/04/17 19:00 Ur Amphetamines Screen Negative (NEGATIVE) 03/04/17 19:00 U Benzodiazepines Scrn Positive (NEGATIVE) 03/04/17 19:00 U Oth Cocaine Metabols Negative (NEGATIVE) 03/04/17 19:00 U Cannabinoids Screen Negative (NEGATIVE) 03/04/17 19:00 Alcohol, Quantitative < 10 mg/dL (0-10) 03/04/17 19:00 Attending/Attestation - Attestation I have personally seen and examined this patient.: Yes I have fully participated in the care of the patient.: Yes I have reviewed all pertinent clinical information, including history, physical exam and plan: Yes Notes (Text): 03/07/17 11:18 Attending note; Patient seen and examined with resident in ICU. Patient is alert, awake and oriented. Patient is a 51-year-old male admitted with Xanax and heroin abuse. Initially intubated for airway protection. currently patient is extubated. Tolerating diet. Ambulating fine. Denied any suicidal or homicidal ideation. Evaluated by psychiatrist. Patient uses recreational drugs. Does not want to stop it. Does not want to talk to family welfare social work professor. Patient signed against medical advice. The possibility of respiratory arrest, arrhythmias including can occur if he continues to use drugs. Diagnosis; Drug overdose Status post extubation Noncompliance with follow-up 03/07/17 11:21
--- NOTE | 2017-03-06 15:03 | CON ---
DATE: PSYCHIATRIST: Ariana Stevenson MD HISTORY OF PRESENT ILLNESS: The patient is 51-year-old male with not known previous psychiatric history. The patient has history of polysubstance abuse and dependence. The patient was admitted into ICU status post overdose on drugs. Psych consult was called for evaluation of overdose. The patient was seen and examined today. The patient presented to be sleepy, but easily arousable, overall calm and superficially cooperative. The patient reported that prior to coming to the hospital, he was not depressed. He said that he did not want to end up his life and it was "accidental overdose." The patient denied being depressed now. The patient denied thoughts of harming himself or others now. The patient said that he is not hearing voices. He is not seeing things. The patient said that he wants to go home and he wants to sign against medical advice. At the same time, this casualty underwriter asked the patient why medical team wants to keep him on the medical floor. The patient has no goal. This casualty underwriter reviewed previous history. The patient have never been evaluated by psychiatrist in the past at least into the [facility]. The patient said he has history of detoxes and rehabs and never had admissions to the psychiatric inpatient unit. The patient denied history of being so depressed that he wanted to end up his life. This casualty underwriter checked. LABORATORY DATA: Hematology; hemoglobin is 13.6, hematocrit 40.7. Chemistry reviewed and seems to be within normal limits. Urinalysis, ketones positive, trace urine was positive for urine opioids as well as benzodiazepines. The patient was seen by neurologist as well as a primary care physician, the patient was intubated earlier and was extubated successfully. Notes from the nursing staff reviewed. The patient was agitated earlier, wanted to leave against medical advice, he was extubated yesterday. Discussed with the medical attending Dr. Higginbotham, and was advised to educate the patient about risk of leaving against medical advice and assessment of capacity, but the patient made it clear that he is not depressed. He did not want to end up his life, but from the medical standpoint, the patient needs to have education and treatment plan need to be explained to the patient, I am sure the medical team did it alright. MENTAL STATUS EXAM: The patient presented to be sleepy, easily arousable, intermittent eye contact. The patient does not know what is the date, but remembers that he was admitted to the medical side on Monday. The patient has marginal personal hygiene, intermittent eye contact. Speech was under productive, mood described that "I am not depressed, I want to go home." Affect was reactive. Mood congruent. Thought process seems to be goal directed. Thought content, the patient denied visual or auditory hallucinations. Denied paranoid ideation. The patient denied thoughts of harming himself or others. Denied intent or plan. Insight and judgment are limited into his addiction problems. Impulses are better controlled. IMPRESSION: Accidental overdose on opioids and benzodiazepines, rule out substance-induced mood disorder. The patient has pneumonia as per medical team. PLAN: Continue current management. Continue current medications. From the psychiatric standpoint, there is nothing else can be implemented. The patient was educated about inpatient rehab, the patient expressed no interest to go inpatient rehab. The patient wants to sign against medical advice, but the patient has poor understanding what medical condition he has. Medical team will educate the patient about that. From the psychiatric standpoint, the patient denied that he is depressed. Denied thoughts of killing himself or others. Denied intents or plan. The patient does not present to be psychotic, not in any imminent danger to self or others, but medical team needs to educate the patient again about his medical condition and the consequences of leaving against medical advice. This casualty underwriter will sign off. Should you have any questions give me a call back. Thank you very much for letting me to participate in care of your patient. Ariana Stevenson MD
== END 2017-03-06 11:40 | disposition left against medical advice (07) | DRG 582 ==
LOC: ED 18:51 → ERH 22:19 → CCU 23:20
PROVIDERS: ADMIT Internal Medicine; ATTEND Internal Medicine
PROC: 0BH17EZ Insertion of Endotracheal Airway into Trachea, Via Natural or Artificial Opening (ICD-10-PCS; principal; 2017-03-04)
PROC: 5A1935Z Respiratory Ventilation, Less than 24 Consecutive Hours (ICD-10-PCS; 2017-03-04)
DX: T40.1X1A Poisoning by heroin, accidental (unintentional), initial encounter (principal); T42.4X1A Poisoning by benzodiazepines, accidental (unintentional), initial encounter; J96.02 Acute respiratory failure with hypercapnia; F11.10 Opioid abuse, uncomplicated; F13.10 Sedative, hypnotic or anxiolytic abuse, uncomplicated; R41.82 Altered mental status, unspecified; F17.210 Nicotine dependence, cigarettes, uncomplicated; Z91.19 Patient's noncompliance with other medical treatment and regimen

== ENCOUNTER 2018-02-27 12:34 | Emergency (ER) | payer MEDICAID ==
[2018-02-27 19:53] VITALS: BMI 28.0
[2018-02-27 19:59] VITALS: RESP 17
[2018-02-28 06:33] VITALS: BP 110/70; PULSE 89; TEMP 98.2; O2SAT 96
--- NOTE | 2018-02-28 16:20 | CARD ---
APPROVED REPORT Date of service: 02/27/2018 EKG Measurement Heart [id number] <Conclusion> Normal sinus rhythm RVCD LVH by voltage, may be a normal variant
== END 2018-02-28 05:57 | disposition home or self-care (01) ==
LOC: ED 12:34
DX: F10.129 Alcohol abuse with intoxication, unspecified (principal)

== ENCOUNTER 2018-03-28 18:43 | Emergency (ER) | payer MEDICAID ==
[2018-03-28 18:52] VITALS: TEMP 97.7; BMI 32.0
[2018-03-28 20:02] VITALS: BP 121/82; PULSE 97; RESP 16; O2SAT 99
--- NOTE | 2018-03-28 20:09 | ED PDOC ---
Arrival/HPI - General Chief Complaint: Substance Abuse Time Seen by Provider: 03/28/18 19:09 Historian: Patient - History of Present Illness Narrative History of Present Illness (Text): 03/28/18 20:07 Kenny Thornton is a year old male, whose past medical history includes alcohol abuse and substance abuse, who presents to the ED brought in by EMS status post possible substance abuse. Patient was found unconscious and given intranasal Narcan with positive response. On arrival, patient is awake, alert, oriented x3. Patient denies any substance abuse, states he took 1 Xanax and had 1 alcoholic drink. Patient denies any chest pain, abdominal pain, nausea, vomiting, headache, dizziness, suicidal ideation, homicidal ideation, or any other complaints. Time/Duration: Prior to Arrival Symptom Onset: Sudden Symptom Course: Improving Activities at Onset: Light Context: Home Past Medical History - Provider Review Nursing Documentation Reviewed: Yes - Infectious Disease Hx of Infectious Diseases: None - Tetanus Immunization Tetanus Immunization: Unknown - Past Medical History Past Medical History: No Previous - Cardiac Hx Cardiac Disorders: No - Pulmonary Hx Respiratory Disorders: No - Neurological Hx Neurological Disorder: No - HEENT Hx HEENT Disorder: No - Renal Hx Renal Disorder: No - Endocrine/Metabolic Hx Endocrine Disorders: No - Hematological/Oncological Hx Blood Disorders: No - Integumentary Hx Dermatological Disorder: No - Musculoskeletal/Rheumatological Hx Falls: No (unable to obtain) - Gastrointestinal Hx Gastrointestinal Disorders: No - Genitourinary/Gynecological Hx Genitourinary Disorders: No - Psychiatric Hx Substance Use: Yes Other/Comment: Substance Abuse - Past Surgical History Past Surgical History: No Previous - Anesthesia Hx Anesthesia: No Hx Anesthesia Reactions: No Hx Malignant Hyperthermia: No - Suicidal Assessment Feels Threatened In Home Enviroment: No Family/Social History - Physician Review Nursing Documentation Reviewed: Yes Family/Social History: Unknown Family HX Smoking Status: Smoker Currrent Status Unknown Hx Alcohol Use: Yes Hx Substance Use: Yes Substance used: heroine, cocaine Hx Substance Use Treatment: No Allergies/Home Meds Allergies/Adverse Reactions: Allergies No Known Allergies Allergy (Verified 11/18/15 21:28) Home Medications: Home Meds Medication Instructions Recorded Confirmed No Known Home Med 12/29/17 03/28/18 Review of Systems - Physician Review All systems were reviewed & negative as marked: Yes - Review of Systems Constitutional: Normal. absent: Fevers Eyes: Normal ENT: Normal Respiratory: Normal. absent: SOB, Cough Cardiovascular: Normal. absent: Chest Pain Gastrointestinal: Normal. absent: Abdominal Pain, Diarrhea, Nausea, Vomiting Genitourinary Male: Normal. absent: Dysuria, Frequency, Urinary Output Changes Musculoskeletal: Normal. absent: Back Pain, Neck Pain Skin: Normal. absent: Rash Neurological: Normal. absent: Headache, Dizziness Endocrine: Normal Hemo/Lymphatic: Normal Psychiatric: Normal Physical Exam Vital Signs Reviewed: Yes Vital Signs Temp Pulse Resp BP Pulse Ox 03/28/18 19:59 97 H 16 121/82 99 03/28/18 18:48 97.7 F 98 H 18 120/80 100 Temperature: Afebrile Blood Pressure: Normal Pulse: Regular Respiratory Rate: Normal Appearance: Positive for: Well-Appearing, Non-Toxic, Comfortable Pain Distress: None Mental Status: Positive for: Alert and Oriented X 3 - Systems Exam Head: Present: Atraumatic, Normocephalic Pupils: Present: PERRL Extroacular Muscles: Present: EOMI Conjunctiva: Present: Normal Mouth: Present: Moist Mucous Membranes Neck: Present: Normal Range of Motion Respiratory/Chest: Present: Clear to Auscultation, Good Air Exchange. No: Respiratory Distress, Accessory Muscle Use Cardiovascular: Present: Regular Rate and Rhythm, Normal S1, S2. No: Murmurs Abdomen: No: Tenderness, Distention, Peritoneal Signs Back: Present: Normal Inspection Upper Extremity: Present: Normal Inspection. No: Cyanosis, Edema Lower Extremity: Present: Normal Inspection. No: Edema Neurological: Present: GCS=15, CN II-XII Intact, Speech Normal Skin: Present: Warm, Dry, Normal Color. No: Rashes Psychiatric: Present: Alert, Oriented x 3, Normal Insight, Normal Concentration Medical Decision Making ED Course and Treatment: 03/28/18 20:07 Impression: 52 year old male brought in s/p suspected overdose. Plan: -- EKG -- Reassess and disposition Progress Notes: Reviewed EKG, NSR at [address]/T changes. Pt is awake, alert, and in no acute distress. Pt states he does not want to undergo any further evaluation or treatment. Strongly dvised pt against the risks of leaving against medical advice, including organ failure/bodily harm or . Pt still wishes to leave. Pt will sign out against medical advice. The patient declines admission, and wishes to leave the Emergency Department. This action is against my medical advice to the patient and the decision was made with informed refusal. The patient was told that admission is necessary and a full explanation of the rationale was given. The risks of leaving were explained to the patient and include, but are not limited to, worsening of known or currently unknown conditions, permanent disability and from undiagnosed or untreated conditions The patient has the capacity to make this informed decision and understands the clinical situation and my explanation of the risks of leaving. The patient voluntarily accepts these risks, and a signed AMA form documenting our conversation was obtained. The patient was given the opportunity to ask questions and reconsider. The patient was encouraged to return to the Emergency Department at any time for further care. - Scribe Statement The provider has reviewed the documentation as recorded by the Scribe Jodie Robertson All medical record entries made by the Scribe were at my direction and personally dictated by me. I have reviewed the chart and agree that the record accurately reflects my personal performance of the history, physical exam, medical decision making, and the department course for this patient. I have also personally directed, reviewed, and agree with the discharge instructions and disposition. Disposition/Present on Arrival - Present on Arrival Any Indicators Present on Arrival: No History of DVT/PE: No History of Uncontrolled Diabetes: No Urinary Catheter: No History of Decub. Ulcer: No History Surgical Site Infection Following: None - Disposition Have Diagnosis and Disposition been Completed?: Yes Diagnosis: Accidental drug overdose Disposition: AGAINST MEDICAL ADVICE Disposition Time: 20:00 Condition: UNKNOWN Referrals: Álvaro Mon MD [Primary Care Provider] - Follow up with primary Forms: [employer] (Belarusian)
--- NOTE | 2018-03-29 10:47 | CARD ---
APPROVED REPORT Date of service: 03/28/2018 EKG Measurement Heart [id number] <Conclusion> Normal sinus rhythm RVCD No change
== END 2018-03-28 19:59 | disposition left against medical advice (07) ==
LOC: ED 18:43
DX: T50.991A Poisoning by other drugs, medicaments and biological substances, accidental (unintentional), initial encounter (principal); Y92.89 Other specified places as the place of occurrence of the external cause

== ENCOUNTER 2018-05-11 18:43 | Emergency (ER) | payer MEDICAID ==
[2018-05-11 18:45] VITALS: BMI 28.0
[2018-05-11] MEDS ORDERED: Naloxone 0.4 mg/ml Inj (Adult) ONE (18:59)
--- NOTE | 2018-05-11 19:06 | ED PDOC ---
Arrival/HPI - General Time Seen by Provider: 05/11/18 18:49 Historian: Patient, EMS - History of Present Illness Narrative History of Present Illness (Text): 05/11/18 19:06 A 52 year old male, is brought into the emergency department via EMS after being found laying on the street. As per EMS, patient was mildly responsive and slightly combative. In the emergency department patient was not speaking. Pupils were pinpoint and he remained mildly responsive. Narcan was given in the ED and patiently became fully awake and alert. He began to speak in full sentences. He denies the use of drugs stating that he fell asleep. States that he took 2 5mg of Xanax. The patient denies falls/trauma, fevers, chills, headache, dizziness, chest pain, shortness of breath, dyspnea on exertion, cough, abdominal pain, nausea, vomiting, diarrhea, back pain, neck pain, urinary/bowel changes, or any other complaint. Time/Duration: Prior to Arrival Symptom Onset: Sudden Symptom Course: Unchanged Activities at Onset: Rest, Light Context: Street Past Medical History - Provider Review Nursing Documentation Reviewed: Yes - Infectious Disease Hx of Infectious Diseases: None - Tetanus Immunization Tetanus Immunization: Unknown - Past Medical History Past Medical History: No Previous - Cardiac Hx Cardiac Disorders: No - Pulmonary Hx Respiratory Disorders: No - Neurological Hx Neurological Disorder: No - HEENT Hx HEENT Disorder: No - Renal Hx Renal Disorder: No - Endocrine/Metabolic Hx Endocrine Disorders: No - Hematological/Oncological Hx Blood Disorders: No - Integumentary Hx Dermatological Disorder: No - Musculoskeletal/Rheumatological Hx Falls: No (unable to obtain) - Gastrointestinal Hx Gastrointestinal Disorders: No - Genitourinary/Gynecological Hx Genitourinary Disorders: No - Psychiatric Hx Substance Use: Yes Other/Comment: Substance Abuse - Past Surgical History Past Surgical History: No Previous - Anesthesia Hx Anesthesia: No Hx Anesthesia Reactions: No Hx Malignant Hyperthermia: No - Suicidal Assessment Feels Threatened In Home Enviroment: No Family/Social History - Physician Review Nursing Documentation Reviewed: Yes Family/Social History: No Known Family HX Smoking Status: Smoker Currrent Status Unknown Hx Alcohol Use: Yes Hx Substance Use: Yes Substance used: heroine, cocaine Hx Substance Use Treatment: No Allergies/Home Meds Allergies/Adverse Reactions: Allergies No Known Allergies Allergy (Verified 06/15/16 21:28) Home Medications: Home Meds Medication Instructions Recorded Confirmed RX: No Known Home Med 12/29/17 03/28/18 Review of Systems - Physician Review All systems were reviewed & negative as marked: Yes - Review of Systems Constitutional: absent: Fevers Respiratory: absent: SOB, Cough Cardiovascular: absent: Chest Pain, BOYLE Gastrointestinal: absent: Abdominal Pain, Stool Changes, Diarrhea, Nausea, Vomiting Genitourinary Male: absent: Urinary Output Changes Musculoskeletal: absent: Back Pain, Neck Pain Neurological: absent: Headache, Dizziness Physical Exam Vital Signs Reviewed: Yes Temperature: Afebrile Blood Pressure: Normal Pulse: Regular Respiratory Rate: Normal Appearance: Positive for: Well-Appearing, Comfortable Pain Distress: None Mental Status: Positive for: other (Alert and mildly responsive) - Systems Exam Head: Present: Atraumatic, Normocephalic Pupils: Present: Pinpoint Extroacular Muscles: Present: EOMI Conjunctiva: Present: Normal Mouth: Present: Moist Mucous Membranes Neck: Present: Normal Range of Motion Respiratory/Chest: Present: Clear to Auscultation, Good Air Exchange. No: Respiratory Distress, Accessory Muscle Use Cardiovascular: Present: Regular Rate and Rhythm, Normal S1, S2. No: Murmurs Abdomen: No: Tenderness, Distention, Peritoneal Signs Back: Present: Normal Inspection Upper Extremity: Present: Normal Inspection. No: Cyanosis, Edema Lower Extremity: Present: Normal Inspection. No: Edema Neurological: Present: GCS=15, CN II-XII Intact Skin: Present: Warm, Dry, Normal Color. No: Rashes Psychiatric: Present: Alert (and mildly responsive), Normal Insight, Normal Concentration Medical Decision Making ED Course and Treatment: 05/11/18 19:10 Impression: A 52 year old male is brought into the emergency department for further evaluation after being found laying on the ground mildly responsive. Plan: -- Glucose POC -- Sobriety -- Reassess and disposition Prior Visits: Notes and results from previous visits were reviewed. Progress Notes: 05/11/18 20:00 On reevaluation, patient with a steady gait, awake and oriented x3, and speaking in clear and coherently. Patient is stable for discharge and has a relative at the bedside to take him home. - Lab Interpretations Lab Results: Lab Results 05/11/18 18:56: POC Glucose (mg/dL) 81 Disposition/Present on Arrival - Present on Arrival Any Indicators Present on Arrival: No History of DVT/PE: No History of Uncontrolled Diabetes: No Urinary Catheter: No History Surgical Site Infection Following: None - Disposition Have Diagnosis and Disposition been Completed?: Yes Diagnosis: Opiate or related narcotic overdose Disposition: HOME/ ROUTINE Disposition Time: 20:02 Patient Plan: Discharge Condition: STABLE Discharge Instructions (ExitCare): Narcotic Overdose (DC) Additional Instructions: HASEEB MCMILLAN, thank you for letting us take care of you today. Your provider was Monica Pandey MD and you were treated for ETOH. The emergency medical care you received today was directed at your acute symptoms. If you were prescribed any medication, please fill it and take as directed. It may take several days for your symptoms to resolve. Return to the Emergency Department if your symptoms worsen, do not improve, or if you have any other problems. Please contact your doctor or call one of the physicians/clinics you have been referred to that are listed on the Patient Visit Information form that is included in your discharge packet. Bring any paperwork you were given at discharge with you along with any medications you are taking to your follow up visit. Our treatment cannot replace ongoing medical care by a primary care provider outside of the emergency department. Thank you for allowing the [facility] team to be part of your care today. If you had an X-Ray or CT scan: A Radiologist will review the ED reading if any change in treatment is needed we will contact you. If you had a blood, urine, or wound culture: It will take several days for the results, if any change in treatment is needed we will contact you. If you had an STI test: It will take 48 hours for the results. Please call after 1 week if you have not heard back. Referrals: [facility] [Outside] - Follow up with primary [facility] [Outside] - Follow up with primary Liza Jennings MD [Medical Doctor] - Follow up with primary Forms: [employer] (Icelandic)
[2018-05-11 19:13] VITALS: RESP 18; TEMP 98
[2018-05-11 20:11] VITALS: BP 138/50; PULSE 80; O2SAT 100
== END 2018-05-11 20:10 | disposition home or self-care (01) ==
LOC: ED 18:43
DX: T50.991A Poisoning by other drugs, medicaments and biological substances, accidental (unintentional), initial encounter (principal); Y92.9 Unspecified place or not applicable
CPT/HCPCS: 82948; 99284; J2310

== ENCOUNTER 2018-06-11 13:15 | Emergency (ER) | payer MEDICAID ==
[2018-06-11 13:28] VITALS: BMI 25.8
[2018-06-11] MEDS ORDERED: Naloxone 0.4 mg/ml Inj (Adult) IVP STA (13:40)
--- NOTE | 2018-06-11 13:48 | ED PDOC ---
Arrival/HPI - General Chief Complaint: Substance Abuse Time Seen by Provider: 06/11/18 13:28 Historian: EMS - History of Present Illness Narrative History of Present Illness (Text): 06/11/18 13:40 Patient is a 53 y/o M, whose past medical history includes alcohol abuse and substance abuse, presents to the ED via EMS for evaluation of AMS since prior to arrival. As per EMS, patient was found on the street with pinpoint pupils and was subsequently brought to the ED. Upon arrival to the ED, patient expresses altered mental status and is speaking in non-comprehensible sounds. HPI and ROS limited secondary to patient's clinical presentation. Time/Duration: Prior to Arrival Symptom Course: Unchanged Activities at Onset: Light Context: Street Past Medical History - Provider Review Nursing Documentation Reviewed: Yes - Infectious Disease Hx of Infectious Diseases: None - Tetanus Immunization Tetanus Immunization: Unknown - Past Medical History Past Medical History: No Previous - Cardiac Hx Cardiac Disorders: No - Pulmonary Hx Respiratory Disorders: No - Neurological Hx Neurological Disorder: No - HEENT Hx HEENT Disorder: No - Renal Hx Renal Disorder: No - Endocrine/Metabolic Hx Endocrine Disorders: No - Hematological/Oncological Hx Blood Disorders: No - Integumentary Hx Dermatological Disorder: No - Musculoskeletal/Rheumatological Hx Falls: No (unable to obtain) - Gastrointestinal Hx Gastrointestinal Disorders: No - Genitourinary/Gynecological Hx Genitourinary Disorders: No - Psychiatric Hx Substance Use: Yes Other/Comment: Substance Abuse - Past Surgical History Past Surgical History: No Previous - Anesthesia Hx Anesthesia: No Hx Anesthesia Reactions: No Hx Malignant Hyperthermia: No - Suicidal Assessment Feels Threatened In Home Enviroment: No Family/Social History - Physician Review Nursing Documentation Reviewed: Yes Family/Social History: No Known Family HX Smoking Status: Smoker Currrent Status Unknown Hx Alcohol Use: Yes Hx Substance Use: Yes Substance used: heroine, cocaine Hx Substance Use Treatment: No Allergies/Home Meds Allergies/Adverse Reactions: Allergies No Known Allergies Allergy (Verified 11/18/15 21:28) Home Medications: Home Meds Medication Instructions Recorded Confirmed No Known Home Med 12/29/17 03/28/18 Review of Systems - Review of Systems Systems not reviewed;Unavailable: Altered Mental Status Physical Exam Vital Signs Reviewed: Yes Temperature: Afebrile Blood Pressure: Normal Pulse: Regular Respiratory Rate: Normal Appearance: Positive for: Other (Patient speaking in non-comprehensible sounds) Pain Distress: None Mental Status: Positive for: other (Altered mental status) - Systems Exam Head: Present: Atraumatic, Normocephalic. No: Abrasion, Laceration Pupils: Present: Pinpoint Extroacular Muscles: Present: EOMI Conjunctiva: Present: Normal Neck: Present: Normal Range of Motion Respiratory/Chest: Present: Clear to Auscultation, Good Air Exchange, Other (Patent airway). No: Respiratory Distress, Accessory Muscle Use Cardiovascular: Present: Regular Rate and Rhythm, Normal S1, S2. No: Murmurs Abdomen: No: Tenderness, Distention, Peritoneal Signs Back: Present: Normal Inspection Upper Extremity: Present: Normal Inspection, Normal ROM, NORMAL PULSES, Neurovascularly Intact. No: Cyanosis, Edema Lower Extremity: Present: Normal Inspection, NORMAL PULSES, Normal ROM, Neurovascularly Intact. No: Edema Neurological: Present: GCS=15, CN II-XII Intact, Speech Normal (Patient speaking in non-comprehensible sounds) Skin: Present: Warm, Dry, Normal Color. No: Rashes Psychiatric: Present: Lethargic Medical Decision Making ED Course and Treatment: 06/11/18 13:52 Impression: 53 year old male presents to the ED for evaluation of AMS since prior to arrival. Plan: -- Naloxone -- Reassess and disposition Prior Visits: Notes and results from previous visits were reviewed. Progress Notes: 06/11/18 14:00 Patient was given Narcan with immediate improvement to symptoms. Patient is currently alert and oriented x3 and in no acute distress. Patient denies any medical complaints. Patient admits to using heroin and Xanax this morning. Admits to falling. Will get CT head due to head trauma. 06/11/18 15:06 06/11/18 18:49 Patient has been monitored for 6 hours. He has not needed additional narcan. CT negative for fracture or hemorrhage. Patient ambulating around Emergency department without issue. - Medication Orders Current Medication Orders: Discontinued Medications Naloxone HCl (Narcan) 0.4 mg IVP STAT STA Stop: 06/11/18 13:41 - Scribe Statement The provider has reviewed the documentation as recorded by the Scribe Tor Mas. All medical record entries made by the Scribe were at my direction and personally dictated by me. I have reviewed the chart and agree that the record accurately reflects my personal performance of the history, physical exam, medical decision making, and the department course for this patient. I have also personally directed, reviewed, and agree with the discharge instructions and disposition. Disposition/Present on Arrival - Present on Arrival Any Indicators Present on Arrival: No History of DVT/PE: No History of Uncontrolled Diabetes: No Urinary Catheter: No History of Decub. Ulcer: No History Surgical Site Infection Following: None - Disposition Have Diagnosis and Disposition been Completed?: Yes Diagnosis: Accidental drug overdose, Drug abuse, opioid type Disposition: HOME/ ROUTINE Disposition Time: 18:50 Patient Plan: Discharge Patient Problems: Current Active Problems Problem Status Onset Accidental drug overdose Acute Drug abuse, opioid type Acute Condition: GOOD Discharge Instructions (ExitCare): Opioid Use Disorder Additional Instructions: Follow-up with PMD within 2 days. Do not use opiods. Return to Emergency department if condition worsens. Referrals: Álvaro Mon MD [Primary Care Provider] - Follow up with primary Forms: [employer] (Slovenian)
[2018-06-11 13:53] VITALS: TEMP 98.7
[2018-06-11 18:43] VITALS: O2SAT 99
[2018-06-11 18:44] VITALS: BP 102/65; PULSE 80; RESP 18
--- NOTE | 2018-06-11 18:52 | CT ---
Date of service: 06/11/2018 PROCEDURE: CT HEAD WITHOUT CONTRAST. HISTORY: fall, opiod abuse COMPARISON: Noncontrast head CT performed 03/04/17 TECHNIQUE: Axial computed tomography images were obtained through the head/brain without intravenous contrast. Radiation dose: Total exam DLP = 875.29 mGy-cm. This CT exam was performed using one or more of the following dose reduction techniques: Automated exposure control, adjustment of the mA and/or kV according to patient size, and/or use of iterative reconstruction technique. FINDINGS: HEMORRHAGE: No intracranial hemorrhage. BRAIN: No mass effect or edema. The davis-white matter differentiation appears intact. Please note that MRI with diffusion imaging is more sensitive in the detection of acute ischemic event. VENTRICLES: No hydrocephalus. CALVARIUM: Unremarkable. PARANASAL SINUSES: Unremarkable as visualized. No significant inflammatory changes. MASTOID AIR CELLS: Unremarkable as visualized. No inflammatory changes. OTHER FINDINGS: Partially imaged right medial facial soft tissue swelling. IMPRESSION: No acute intracranial pathology identified. Partially imaged right medial facial soft tissue swelling.
== END 2018-06-11 19:28 | disposition home or self-care (01) ==
LOC: ED 13:15
DX: T50.991A Poisoning by other drugs, medicaments and biological substances, accidental (unintentional), initial encounter (principal); F11.10 Opioid abuse, uncomplicated; Y92.89 Other specified places as the place of occurrence of the external cause
CPT/HCPCS: 70450; 82948; 96374; 99283; J2310